=== PATIENT | female | born 1940 | race Caucasian/White ===

== ENCOUNTER 2022-06-05 02:39 | Inpatient (IN) | payer MEDICARE, BC, OTHER, SELFPAY ==
--- NOTE | ~2022-06-05 | XR_ITS ---
EXAMINATION: XR BILATERAL ELBOWS: 3 VIEWS EACH CLINICAL INFORMATION: Fall. Pain. COMPARISON: None FINDINGS: No acute fracture or dislocation. No joint effusion on either side. Soft tissue swelling posterior to both elbow joints, more pronounced on the right. XR/XR elbow LT 2V IMPRESSION: No acute fracture or dislocation
--- NOTE | ~2022-06-05 | CT_ITS ---
EXAMINATION: CT HEAD WITHOUT CONTRAST CLINICAL INFORMATION: Fall. Confusion. COMPARISON: None TECHNIQUE: Contiguous axial imaging was performed from the skull base to vertex without intravenous administration of contrast. This CT examination was performed using dose optimization techniques as appropriate, variously including the following: *Automated exposure control *Adjustment of mA and/or kV according to patient size (this includes techniques or standardized protocols for targeted exams where dose is matched to indication/reason for exam; i.e. extremities or head) *Use of iterative reconstruction technique DLP: 605 mGy-cm FINDINGS: There is no evidence of an extra-axial collection. There is no evidence of intra-axial or extra-axial hemorrhage. The ventricles and extra-axial CSF spaces are slightly prominent suggestive of mild generalized atrophy. There is nonspecific periventricular white matter disease. No mass, mass effect or infarct is seen. No skull fracture. Degenerative changes at the temporomandibular joints, left greater than right. Visualized paranasal sinuses, mastoid air cells and middle ears are clear. CT/CT head/brain wo IV con IMPRESSION: No acute intracranial findings.
--- NOTE | ~2022-06-05 | CT_ITS ---
EXAMINATION: RIGHT ELBOW CT WITH IV CONTRAST CLINICAL INFORMATION: Rule out abscess COMPARISON: Elbow x-ray from earlier the same day TECHNIQUE: Axial images through the elbow following 65 mL Omnipaque 350 intravenous contrast. Sagittal and coronal reconstructions on the technologist workstation were performed. Patient dose 6 0 5 mg/cm. This CT examination was performed using dose optimization techniques as appropriate, variously including the following: *Automated exposure control *Adjustment of mA and/or kV according to patient size (this includes techniques or standardized protocols for targeted exams where dose is matched to indication/reason for exam; i.e. extremities or head) *Use of iterative reconstruction technique FINDINGS: There is diffuse subcutaneous edema or fluid seen in the posterior elbow and posterior proximal forearm. No focal or walled off fluid collection is seen to suggest an abscess. No abnormal enhancement or fluid collection in the muscles to suggest myositis is seen. There is a small amount of fluid or subcutaneous edema seen in the antecubital fossa as well. No fracture or dislocation or evidence of osteomyelitis. Normal joint spaces. No elbow joint effusion. Small spur at the olecranon process. CT/CT elbow RT w IV con IMPRESSION: Diffuse subcutaneous edema or fluid seen posterior to the elbow and proximal posterior upper forearm. No definite focal walled off fluid collection to suggest abscess seen.
--- NOTE | ~2022-06-05 | XR_ITS ---
EXAMINATION: XR BILATERAL ELBOWS: 3 VIEWS EACH CLINICAL INFORMATION: Fall. Pain. COMPARISON: None FINDINGS: No acute fracture or dislocation. No joint effusion on either side. Soft tissue swelling posterior to both elbow joints, more pronounced on the right. XR/XR elbow RT 2V IMPRESSION: No acute fracture or dislocation
[2022-06-05 02:46] VITALS: BP 110/72; BP 135/72; PULSE 85; PULSE 91; RESP 14; TEMP 37.1; O2SAT 95; O2SAT 98; BMI 19.8
--- NOTE | 2022-06-05 03:46 | PC.NURSE ---
pt resting in bed, no needs at this time.
--- OUTSIDE RECORDS SUMMARY | 2022-06-05 04:40 | XMS_ITS | Continuity of Care Document ---
:1940 Author Organization [facility] Address [address]
--- OUTSIDE RECORDS SUMMARY | 2022-06-05 04:40 | XMS_ITS | Continuity of Care Document ---
:1940 Demographics Address [address] [place] [address] Mobile Email Address Preferred Language Uruguayan Marital Status
--- OUTSIDE RECORDS SUMMARY | 2022-06-05 04:41 | XMS_ITS | Continuity of Care Document ---
:1940 Author
--- NOTE | 2022-06-05 04:59 | ED_ITS ---
HPI - General Adult General Chief complaint: General Medical Stated complaint: weakness Time Seen by Provider: 06/05/22 04:43 Source: patient and family Mode of arrival: wheelchair Limitations: no limitations History of Present Illness HPI narrative: Patient comes to the emergency room accompanied by her . The reports that approximately 2 days ago, patient had a fall, landed on her elbows. Patient states that she does not remember exactly why she fell. Patient states that her was present, patient did not have any head strike, no loss of consciousness. The reports that over the last 2 days, he has noticed that the patient is gradually becoming weaker. Usually, patient is able to get up by herself, sometimes needs assistance getting up. However, today patient has significant weakness getting up off the toilet and had no strength to walk. Patient's called 911. Patient's is concerned that he cannot take care his at home because she is so weak. Patient denies any fever or chills. Complaining of pain in her right elbow Related Data Allergies Allergy/AdvReac Type Severity Reaction Status Date / Time Sulfa (Sulfonamide Allergy Unknown Unknown Unverified 06/05/22 04:56 Antibiotics) Review of Systems Review of Systems: Constitutional : No Weight loss, No Fever, No Chills, No Night Sweats, complaining of fatigue, generalized weakness ENT/Mouth : No Hearing loss, No Ear Pain, No Nasal Congestion, No Sinus Pain, No Hoarseness, No sore throat, No Rhinorrhea, No Swallowing Difficulty Eyes: No Eye Pain, No Swelling, No Redness, No Foreign Body, No Discharge, No Vision Changes Cardiovascular : No Chest Pain, No SOB, No Dyspnea on Exertion, No Orthopnea, No Edema, No Palpitations Respiratory : No Cough, No Sputum, No Wheezing, No Smoke Exposure, No Dyspnea Gastrointestinal : No Nausea, No Vomiting, No Diarrhea, No Constipation, No abdominal Pain, No Hematochezia, No Melena Genitourinary : no irregular bleeding, No Dysuria, No Urinary Frequency, No Hematuria, No Urinary Incontinence, No Urgency, No Flank Pain, No Urinary Flow Changes, No Hesitancy Musculoskeletal : Complaining of bilateral elbow pain more on the right side, No Myalgias, No Joint Swelling Skin : No Skin Lesions, No rash Neuro : No Weakness, No Numbness, No Paresthesias, No Loss of Consciousness, No Dizziness, No Headache Psych : No Anxiety/Panic, No Depression, No SI/HI/AH/VH, No Social Issues, Heme/Lymph: No Bruising, No Bleeding,No Lymphadenopathy Endocrine : No Polyuria, No Polydipsia, No Temperature Intolerance [facility] Past Medical History Medical History (Updated 06/05/22 @ 05:05 by Pita Owens MD) Anxiety Dementia Social History Social History Smoked in Last 30 Days: No Use of substances other than those prescribed or required for medical reasons: No Advance Directives: No Advance Directives Information Provided: Yes Physical Exam ED Vital Signs: Vital Signs - 24 hr 06/05/22 02:46 06/05/22 06:12 Temperature 98.7 F Pulse Rate 85 82 Respiratory Rate 14 16 Blood Pressure 135/72 116/58 L Pulse Oximetry 95 95 Oxygen Delivery Method Room Air Room Air BMI result Body Mass Index 19.8 Const Other: Appearance: Alert. Oriented X3. No acute distress. Eyes: Pupils equal, round and reactive to light. ENT: Pharynx normal. Neck: Normal inspection. Neck supple. No lymph nodes noted. No crepitus CVS: Normal heart rate and rhythm. Pulses normal. Normal S1 and S2 Respiratory: No respiratory distress. Breath sounds normal. No Wheezing. No rales Abdomen: Soft and nontender. No rigidity. No distention. Skin: Skin warm and dry. Patient has erythema around the right elbow, patient has an abrasion that is oozing pus in the right elbow. Extremities: No lower extremity edema. No Lacerations. No Rash Neuro: Oriented X 3. No motor deficit. No sensory deficit. Moving all extremities. No slurred speech. CN 2 through 12 grossly intact Psych: calm, cooperative, normal affect Course Course Course Narrative: Patient's labs and imaging pending. Patient likely has an abscess by the right elbow, definitely has cellulitis. After all the labs and imaging resolved, patient will likely need to be admitted. Patient was started on IV Zosyn and vancomycin. Sepsis not suspected at this time. X-ray negative for fracture. I discussed the patient with Dr. Taylor, we will go ahead and obtain a CT scan of the elbow. Patient will likely need an orthopedics consult. Medications Administered Discontinued Medications Generic Name Dose Route Start Last Admin Trade Name Freq PRN Reason Stop Dose Admin Sodium Chloride 1,000 mls @ 999 mls/hr 06/05/22 04:56 06/05/22 06:13 Ns IVCONT 06/05/22 05:56 999 mls/hr .Q1H1M ONE Administration Piperacillin Sod/Tazobactam 50 mls @ 100 mls/hr 06/05/22 04:56 06/05/22 06:14 Sod 3.375 gm/ Sodium Chloride IV 06/05/22 05:25 100 mls/hr ONCE ONE Administration Medical Decision Making Lab Data Result Diagrams: 06/05/22 05:22 06/05/22 05:23 Labs: Lab Results 06/05/22 06/05/22 06/05/22 Range/Units 05:22 05:22 05:22 WBC 16.1 H (4.8-10.8) X10*3/uL RBC 4.55 (4.20-5.50) X10*6/uL Hgb 13.6 (12.0-16.0) g/dl Hct 40.1 (37.0-47.0) % MCV 88.1 (80.0-98.0) fL MCH 29.9 (27.0-33.0) pg MCHC 33.9 (31.0-35.0) g/dl RDW 12.8 (11.0-16.0) % Plt Count 190 (160-400) X10*3/uL MPV 10.2 (9.4-12.3) fL Immature Gran % (Auto) 0.4 (0.0-0.4) % Neut % (Auto) 77.7 H (45-73) % Lymph % (Auto) 11.2 L (20-40) % [place] % (Auto) 10.4 (2-11) % Eos % (Auto) 0.1 (0-4) % Baso % (Auto) 0.2 (0-2) % Lymph # (Auto) 1.8 (1.2-4.9) X10*3/uL [place] # (Auto) 1.7 H (0.1-1.2) X10*3/uL Eos # (Auto) 0.0 (0.0-0.4) X10*3/uL Baso # (Auto) 0.0 (0.0-0.2) X10*3/uL Abs Immat Gran (auto) 0.06 H (0.00-0.03) X10*3/uL Absolute Neuts (auto) 12.6 H (2.0-8.3) x10*3/uL Absolute Nucleated RBC 0.000 (0.0-0.012) X10*3/uL Nucleated RBC % (auto) 0.0 (0.0-0.2) /100WBC Smear Tech's Comments VERIFIED ESR (0-20) MM/HR Sodium (135-145) mmol/L Potassium (3.3-5.1) mmol/L Chloride (96-108) mmol/L Carbon Dioxide (22-29) mmol/L Anion Gap (12-20) BUN (9-16) mg/dL Creatinine (0.5-1.4) mg/dL Estim Creat Clear Calc Estimated GFR Random Glucose (60-115) mg/dL Lactic Acid 1.0 (0.5-2.0) mmol/L Calcium (8.4-10.2) mg/dL Total Bilirubin (0.0-1.0) mg/dL Direct Bilirubin (0.0-0.5) mg/dL AST (5-31) U/L ALT (0-31) U/L Alkaline Phosphatase (39-117) U/L Total Creatine Kinase (26-140) U/L Troponin I High Sens (<3.5-17.0) ng/L C-Reactive Protein (< or = 0.50) mg/dL Total Protein (6.5-8.0) g/dL Albumin (3.5-5.0) g/dL COVID-19 ([facility]) Negative (Negative) COVID-19 Clin Com See Note 06/05/22 06/05/22 06/05/22 Range/Units 05:23 05:23 05:23 WBC (4.8-10.8) X10*3/uL RBC (4.20-5.50) X10*6/uL Hgb (12.0-16.0) g/dl Hct (37.0-47.0) % MCV (80.0-98.0) fL MCH (27.0-33.0) pg MCHC (31.0-35.0) g/dl RDW (11.0-16.0) % Plt Count (160-400) X10*3/uL MPV (9.4-12.3) fL Immature Gran % (Auto) (0.0-0.4) % Neut % (Auto) (45-73) % Lymph % (Auto) (20-40) % [place] % (Auto) (2-11) % Eos % (Auto) (0-4) % Baso % (Auto) (0-2) % Lymph # (Auto) (1.2-4.9) X10*3/uL [place] # (Auto) (0.1-1.2) X10*3/uL Eos # (Auto) (0.0-0.4) X10*3/uL Baso # (Auto) (0.0-0.2) X10*3/uL Abs Immat Gran (auto) (0.00-0.03) X10*3/uL Absolute Neuts (auto) (2.0-8.3) x10*3/uL Absolute Nucleated RBC (0.0-0.012) X10*3/uL Nucleated RBC % (auto) (0.0-0.2) /100WBC Smear Tech's Comments ESR 44 H (0-20) MM/HR Sodium 135 (135-145) mmol/L Potassium 4.0 (3.3-5.1) mmol/L Chloride 99 (96-108) mmol/L Carbon Dioxide 24 (22-29) mmol/L Anion Gap 16 (12-20) BUN 17 H (9-16) mg/dL Creatinine 0.90 (0.5-1.4) mg/dL Estim Creat Clear Calc 46.3 Estimated GFR > 60 Random Glucose 124 H (60-115) mg/dL Lactic Acid (0.5-2.0) mmol/L Calcium 9.2 (8.4-10.2) mg/dL Total Bilirubin 1.9 H (0.0-1.0) mg/dL Direct Bilirubin 0.5 (0.0-0.5) mg/dL AST 31 (5-31) U/L ALT 20 (0-31) U/L Alkaline Phosphatase 91 (39-117) U/L Total Creatine Kinase 174 H (26-140) U/L Troponin I High Sens 7.7 (<3.5-17.0) ng/L C-Reactive Protein 20.45 H (< or = 0.50) mg/dL Total Protein 7.1 (6.5-8.0) g/dL Albumin 4.0 (3.5-5.0) g/dL COVID-19 ([facility]) (Negative) COVID-19 Clin Com Discharge Plan Discharge Clinical Impression: Cellulitis, Weakness Patient Disposition: Admitted As Inpatient
[2022-06-05 05:29] LABS: Basophils Percent Auto 0.2 % (0-2); Eosinophils Percent Auto 0.1 % (0-4); Hematocrit 40.1 % (37.0-47.0); Hemoglobin 13.6 g/dl (12.0-16.0); Imm Gran Abs Auto 0.06 X10*3/uL (0.00-0.03); Imm Gran Pct Auto 0.4 % (0.0-0.4); Lymphocytes Absolute Auto 1.8 X10*3/uL (1.2-4.9); Lymphocytes Percent Auto 11.2 % (20-40); Mean Corpuscular HGB Conc 33.9 g/dl (31.0-35.0); Mean Corpuscular Hemoglobin 29.9 pg (27.0-33.0); Mean Corpuscular Volume 88.1 fL (80.0-98.0); Mean Platelet Volume 10.2 fL (9.4-12.3); Monocytes Absolute Auto 1.7 X10*3/uL (0.1-1.2); Monocytes Percent Auto 10.4 % (2-11); Neutrophils Absolute Auto 12.6 x10*3/uL (2.0-8.3); Neutrophils Percent Auto 77.7 % (45-73); Platelet Count 190 X10*3/uL (160-400); Red Blood Count 4.55 X10*6/uL (4.20-5.50); Red Cell Distribution Width 12.8 % (11.0-16.0); SCAN SMEAR FLAG 1; White Blood Count 16.1 X10*3/uL (4.8-10.8)
--- NOTE | 2022-06-05 05:30 | PC.NURSE ---
pt is alert but pleasantly confused unable to state the year thinks its summer time, reports that pt is having increased difficulty with ambulating and having with falls, increased confusion and keeps saying she feels out of breath. pt's right elbow red and tender from a previous fall. this rn ambulated the pt to the bathroom with two assists, pt did require constant reminder to put her foot in front of the other and was slightly shuffling, pt was unable to urinate at this time, this rn did a bladder scan the pt but 000ml in the bladder at this time. spoke with dr medeiros about the results of the bladder scan, verbal order to hang the abx without a urine sample
[2022-06-05 05:31] LABS: MANUAL DIFF FLAG SCAN
[2022-06-05 05:40] LABS: COVID-19 Test Negative (Negative); IDNOW Serial# BCCEAD1C
[2022-06-05 05:48] LABS: SLIDE REVIEW VERIFIED
[2022-06-05 05:49] LABS: Alanine Aminotransferase 20 U/L (0-31); Alkaline Phosphatase 91 U/L (39-117); Anion Gap 16 (12-20); Aspartate Amino Transferase 31 U/L (5-31); Bilirubin Direct 0.5 mg/dL (0.0-0.5); Bilirubin Total 1.9 mg/dL (0.0-1.0); Blood Urea Nitrogen 17 mg/dL (9-16); C Reactive Protein 20.45 mg/dL (< or = 0.50); Calcium 9.2 mg/dL (8.4-10.2); Carbon Dioxide 24 mmol/L (22-29); Chloride 99 mmol/L (96-108); Creatinine Clr Calc Pharmacy 46.3; Estimated Glomerular Filt Rate > 60; Glucose Random 124 mg/dL (60-115); Sodium 135 mmol/L (135-145); Total Protein 7.1 g/dL (6.5-8.0)
[2022-06-05 05:53] LABS: Troponin-I High Sensitivity 7.7 ng/L (<3.5-17.0)
[2022-06-05 06:01] LABS: Erythrocyte Sedimentation Rate 44 MM/HR (0-20)
[2022-06-05 06:12] VITALS: BP 116/58; PULSE 82; RESP 16; O2SAT 95
--- NOTE | 2022-06-05 07:21 | PC.NURSE ---
pt to ct at this time. pt appears at baseline. at bedside. aware pf plan of care for admission. denied having any questions.
[2022-06-05] MEDS: iohexoL 350 MG/ML 100 ML INFUS..BTL 85 ML IV (07:42)
--- NOTE | 2022-06-05 08:52 | PM.IMHP ---
History of Present Illness Date of Service: 06/05/22 Chief Complaint: weakness The patient is an 81 yo F with a PMH of anxiety and dementia (per ED documentation) who presented to the ED for generalized weakness. The patient is currently forgetful (suspected chronic due to underlying dementia) and hence the history is obtained from the ED charts. A call was made to the the patient's , whom the patient resides with, but went unanswered. Per the ED provider documentation: Patient comes to the emergency room accompanied by her .? The reports that approximately 2 days ago, patient had a fall, landed on her elbows.? Patient states that she does not remember exactly why she fell.? Patient states that her was present, patient did not have any head strike, no loss of consciousness.? The reports that over the last 2 days, he has noticed that the patient is gradually becoming weaker.? Usually, patient is able to get up by herself, sometimes needs assistance getting up.? However, today patient has significant weakness getting up off the toilet and had no strength to walk.? Patient's called 911.? Patient's is concerned that he cannot take care his at home because she is so weak.? Patient denies any fever or chills.? Complaining of pain in her right elbow The patient is seen and examined in the Ed around 8:40 AM. She does not know where she is, nor the date/time. She states she came to the ED because of weakness. When asked about falls, she does not recall falling. She denies headache, blurred vision, chest pain, sob, abdominal pain. She states no not elbow pain, but does show signs of pain with ROM. Work up in the ED reveals a wbc count of 16; ESR is 44 and CRP 20. Elow XR is negative for acute fractures. A CT scan of the elbow is completed and pending read. She has been given IV zosyn and vancomcyin for presumed cellulitis and abscess near the R elbow. She will not be admitted for further work up and treatment. PMH/PSH/SH/FH --- unable to complete due to the patient's mental status Review of Systems Review of Systems: unable to review due to patient's mental status [facility] Medical History Anxiety Dementia Social History Smoked in Last 30 Days: No Use of substances other than those prescribed or required for medical reasons: No Advance Directives: No Advance Directives Information Provided: Yes Meds Allergies Allergy/AdvReac Type Severity Reaction Status Date / Time Sulfa (Sulfonamide Allergy Unknown Unknown Unverified 06/05/22 04:56 Antibiotics) Active Medications: Current Medications Acetaminophen (Acetaminophen 325 Mg Tablet) 650 mg PO Q6H PRN PRN Reason: Pain, Mild (Pain Scale 1-3) Enoxaparin Sodium (Enoxaparin Sodium 40 Mg/0.4 Ml Syringe) 40 mg SUBCUT Q24H DORON Ondansetron HCl (Ondansetron Hcl 4 Mg/2 Ml Vial) 4 mg IVPUSH Q8H PRN PRN Reason: Nausea and Vomiting Pharmacy Consult (Consult Rx Perform Med Rec) 1 each MISCELLANE ONCE PRN PRN Reason: Consult order Sodium Chloride (0.9 % Sodium Chloride Flush 3 Ml Syringe) 3 ml IVFLUSH QSHIFT [facility] Home Medications Medication Instructions Recorded Confirmed Last Taken Type alprazolam 0.25 mg tablet 1 tab PO BID PRN anxiety 06/05/22 06/05/22 Unknown History cholecalciferol (vitamin D3) 25 25 mcg PO DAILY 06/05/22 06/05/22 06/04/22 History mcg (1,000 unit) tablet (Vitamin D3) denosumab 60 mg/mL subcutaneous 60 mg subcut DAILY 06/05/22 06/05/22 3 Months Ago History syringe (Prolia) ~03/06/22 donepezil 10 mg tablet 1 tab PO BEDTIME 06/05/22 06/05/22 06/04/22 History gabapentin 100 mg capsule 2 cap PO BID 06/05/22 06/05/22 06/04/22 History paroxetine HCl 20 mg tablet 1 tab PO DAILY 06/05/22 06/05/22 06/04/22 History propranolol 60 mg capsule,24 1 cap PO DAILY 06/05/22 06/05/22 06/04/22 History hr,extended release vitamin A 10,000 unit capsule 10,000 unit PO DAILY 06/05/22 06/05/22 06/04/22 History Physical Exam Vital Signs and Narrative: Vital Signs: Last Vital Signs Temp 98.7 F 06/05/22 02:46 Pulse 82 06/05/22 06:12 Resp 16 06/05/22 06:12 BP 116/58 L 06/05/22 06:12 Pulse Ox 95 06/05/22 06:12 O2 Del Method 06/05/22 06:12 BMI result Body Mass Index 19.8 Const: Other: Constitutional - Awake and Alert, No apparent distress Eyes - PERRLA, EOMI Cardiovascular - S1S2, RRR, No edema Respiratory - Normal lung expansion, Normal respiratory effort, No respiratory distress, CTA bilaterally Gastrointestinal - NT / ND; +BS; No rebound or guarding - No CVA tenderness Extremities - no calf tenderness bilaterally, no swelling Musculoskeletal - ROM in the R elbow limited secondary to swelling / pain Skin - Erythema / warmth near the R elbow join; small opening with serosanginous drainage; see pictures below Neurological - Oriented to self, otherwise disoriented; no focal deficits Psychological - Appropriate affect Skin: Other: Results Labs CBC and Chem 7: 06/05/22 05:22 06/05/22 05:23 Labs: Laboratory Results - last 24 hr 06/05/22 06/05/22 06/05/22 05:22 05:22 05:22 MCV 88.1 MCH 29.9 MCHC 33.9 RDW 12.8 Plt Count 190 MPV 10.2 Immature Gran % (Auto) 0.4 Neut % (Auto) 77.7 H Lymph % (Auto) 11.2 L [place] % (Auto) 10.4 Eos % (Auto) 0.1 Baso % (Auto) 0.2 Lymph # (Auto) 1.8 [place] # (Auto) 1.7 H Eos # (Auto) 0.0 Baso # (Auto) 0.0 Abs Immat Gran (auto) 0.06 H Absolute Neuts (auto) 12.6 H Absolute Nucleated RBC 0.000 Nucleated RBC % (auto) 0.0 Smear Tech's Comments VERIFIED ESR Anion Gap Estim Creat Clear Calc Estimated GFR Random Glucose Lactic Acid 1.0 Calcium Total Bilirubin Direct Bilirubin AST ALT Alkaline Phosphatase Total Creatine Kinase Troponin I High Sens C-Reactive Protein Total Protein Albumin COVID-19 ([facility]) Negative COVID-19 Clin Com See Note 12/27/22 12/27/22 12/27/22 05:23 05:23 05:23 MCV MCH MCHC RDW Plt Count MPV Immature Gran % (Auto) Neut % (Auto) Lymph % (Auto) [place] % (Auto) Eos % (Auto) Baso % (Auto) Lymph # (Auto) [place] # (Auto) Eos # (Auto) Baso # (Auto) Abs Immat Gran (auto) Absolute Neuts (auto) Absolute Nucleated RBC Nucleated RBC % (auto) Smear Tech's Comments ESR 44 H Anion Gap 16 Estim Creat Clear Calc 46.3 Estimated GFR > 60 Random Glucose 124 H Lactic Acid Calcium 9.2 Total Bilirubin 1.9 H Direct Bilirubin 0.5 AST 31 ALT 20 Alkaline Phosphatase 91 Total Creatine Kinase 174 H Troponin I High Sens 7.7 C-Reactive Protein 20.45 H Total Protein 7.1 Albumin 4.0 COVID-19 ([facility]) COVID-19 Clin Com Imaging Radiologist's Impressions: Impressions Elbow X-Ray 06/05/22 05:31 IMPRESSION: No acute fracture or dislocation Elbow X-Ray 06/05/22 05:31 IMPRESSION: No acute fracture or dislocation Assessment and Plan (1) Cellulitis: Status: Acute Plan 81 yo F with suspected dementia and anxiety presenting to the ED with weakness after sustaining a fall about 2 days prior to admission. It appears that she has developed R elbow cellulitis and possibly infected bursitis vs abscess. 1. R elbow cellulitis with possible abscess vs septic bursitis. CT result pending given vancomcyin / zosyn in the ED -- will continue vancomcyin follow cultures orthpedics consult 2. Confusion suspected likely baseline from dementia, but will have to obtain collateral information from family. Attempted to call but no response; will re-attempt 3. Generalized weakness possibly from acute infection 4. Hyperbilirubinemia no abdominal symptoms, could be related to acute infection will trend Presumed Full Code for now (pt could not understand / reliably answer). DVT pptx - Lovenox Due to the patient's cellulitis with potential for join involvement and the need for expert opinion (orthopedics) + what appears to be advanced dementia, I anticipate she will need an inpatient hospitalization likey to span at least 2 midnights for treatment of her acute infection. Time Spent With Patient Time: Total time managing care of this patient today ____ minutes. Quality Stroke Does the patient have a stroke diagnosis?: No VTE Prior VTE?: No VTE Risk Level:: Medical - moderate - high VTE Device Contraindication: Treatment Not Indicated VTE Drug Contraindication: N/A - Med Ordered
[2022-06-05 09:04] VITALS: BP 176/52; PULSE 76; RESP 16; O2SAT 98
--- NOTE | 2022-06-05 09:10 | PHA.MEDREC ---
Pharmacy Consult ? Medication Reconciliation Pharmacy has completed the medication reconciliation Patient's was at bedside with RX bottles and confirmed meds..
--- NOTE | 2022-06-05 09:20 | PC.NURSE ---
Pt was assisted by me to stand ambulate. Pt was ambulated for 20 feet. She needed 1 limited assistance. Pt tolerated activity well.
--- NOTE | 2022-06-05 09:37 | PHA.PROG ---
Admission Date/Time: June 05, 2022 08:49 Indication Bone & Joint Weight in k.967 kg Adjusted body weight in K.9 kg [place] body weight in K.9 kg Obesity Dosing Indication % IBW: 58.9 kg Serum Creatinine - Last 168 Hours 06/05/22 05:23 Creatinine 0.90 Estimated CrCl and GFR - Last 168 Hours 06/05/22 05:23 Estim Creat Clear Calc 46.3 Estimated GFR > 60 Vancomycin Loading Dose: 1500 mg (25.5 mg/kg) Current Vancomycin Dosing Regimen: 1000 mg Q24H Date and Time for next Vancomycin Level to be drawn: 05/29 @ 0600 Pharmacist Comments on Vancomycin Plan: Patient received loading dose vanco 1500 mg in the ER 06/05 @ 0753. Maintenance dose vanco 1000 mg Q24H is scheduled to start 06/06 @ 0800. Expected AUC 506 with a trough of 15.4. Level to be drawn prior to 4th dose Pharmacy to monitor renal function daily Meg Hurt PharmD Vancomycin dosing will take advantage of [employer] as a clinical decision support tool that uses Bayesian modeling to calculate individual patient's pharmacokinetic parameters and forecast the patient's drug concentration time course with the target goal AUC 24 range of 400 - 600 mg/L/hr.
[2022-06-05] MEDS: Enoxaparin Sodium 40 MG/0.4 ML SYRINGE SUBCUT (09:40)
--- NOTE | 2022-06-05 09:57 | P.CONOP_ITS ---
History of Present Illness HPI Consult date: 06/05/22 Chief complaint: weakness Narrative: Ms. Witt is an 81 yo female with a PMH significant for suspected Dementia who presented to the emergency room for generalized weakness. HPI is mostly gathered from ED note and Medicine note.? The patients was present at the time of presentation but not during my evaluation. According to prior documentation the reported that approximately 2 days ago, the patient had a fall landing on her elbows.?She complains of right elbow pain with surrounding redness and a small pea sized abrasion. Review of Systems Review of Systems: Yes all other systems are reviewed and are negative PMFSH Past Medical History Medical History Anxiety Dementia Social History Social History Smoked in Last 30 Days: No Use of substances other than those prescribed or required for medical reasons: No Advance Directives: No Advance Directives Information Provided: Yes Meds Allergies Allergy/AdvReac Type Severity Reaction Status Date / Time Sulfa (Sulfonamide Allergy Unknown Unknown Unverified 06/05/22 04:56 Antibiotics) Active Medications: Current Medications Acetaminophen (Acetaminophen 325 Mg Tablet) 650 mg PO Q6H PRN PRN Reason: Pain, Mild (Pain Scale 1-3) Enoxaparin Sodium (Enoxaparin Sodium 40 Mg/0.4 Ml Syringe) 40 mg SUBCUT Q24H [facility] Last Admin: 06/05/22 09:40 Dose: 40 mg Vancomycin HCl 1,000 mg/ (Sodium Chloride) 270 mls @ 270 mls/hr IV Q24H DORON Ondansetron HCl (Ondansetron Hcl 4 Mg/2 Ml Vial) 4 mg IVPUSH Q8H PRN PRN Reason: Nausea and Vomiting Pharmacy Consult (Consult Rx Perform Med Rec) 1 each MISCELLANE ONCE PRN PRN Reason: Consult order Pharmacy Consult (Consult Rx Vancomycin Dosing) 1 each MISCELLANE DAILY PRN PRN Reason: Consult order Sodium Chloride (0.9 % Sodium Chloride Flush 3 Ml Syringe) 3 ml IVFLUSH QSHIFT [facility] Last Admin: 06/05/22 09:18 Dose: Not Given Home Medications Medication Instructions Recorded Confirmed Last Taken Type alprazolam 0.25 mg tablet 1 tab PO BID PRN anxiety 06/05/22 06/05/22 Unknown History cholecalciferol (vitamin D3) 25 25 mcg PO DAILY 06/05/22 06/05/22 06/04/22 History mcg (1,000 unit) tablet (Vitamin D3) denosumab 60 mg/mL subcutaneous 60 mg subcut DAILY 06/05/22 06/05/22 3 Months Ago History syringe (Prolia) ~03/06/22 donepezil 10 mg tablet 1 tab PO BEDTIME 06/05/22 06/05/22 06/04/22 History gabapentin 100 mg capsule 2 cap PO BID 06/05/22 06/05/22 06/04/22 History paroxetine HCl 20 mg tablet 1 tab PO DAILY 06/05/22 06/05/22 06/04/22 History propranolol 60 mg capsule,24 1 cap PO DAILY 06/05/22 06/05/22 06/04/22 History hr,extended release vitamin A 10,000 unit capsule 10,000 unit PO DAILY 06/05/22 06/05/22 06/04/22 History Physical Exam Vital Signs: Vital Signs: Last Vital Signs Temp 98.7 F 06/05/22 02:46 Pulse 76 06/05/22 09:04 Resp 16 06/05/22 09:04 BP 176/52 H 06/05/22 09:04 Pulse Ox 98 06/05/22 09:04 O2 Del Method 06/05/22 09:04 BMI result Body Mass Index 19.8 Const: General: cooperative and no acute distress Resp: Effort & Inspection: normal respiratory effort and able to speak in complete sentences Cardio: Peripheral pulses: Peripheral pulses 2+ throughout Skin: General skin exam: no rashes or lesions noted Extrem: Other: Right elbow erythema along the olecranon and posterior aspect of the elbow. Two small pea sized open areas over the olecranon bursa. No active drainage. Able to flex, extend, pronate and supinate with pain. Tenderness to palpation over the olecranon. Reportedly sensation is intact. Radial pulse intact. Results Labs Result Diagrams: 06/05/22 05:22 06/05/22 05:23 Labs: Abnormal lab results 06/05/22 06/05/22 06/05/22 Range/Units 05:22 05:23 05:23 WBC 16.1 H (4.8-10.8) X10*3/uL Neut % (Auto) 77.7 H (45-73) % Lymph % (Auto) 11.2 L (20-40) % [place] # (Auto) 1.7 H (0.1-1.2) X10*3/uL Abs Immat Gran (auto) 0.06 H (0.00-0.03) X10*3/uL Absolute Neuts (auto) 12.6 H (2.0-8.3) x10*3/uL ESR 44 H (0-20) MM/HR BUN 17 H (9-16) mg/dL Random Glucose 124 H (60-115) mg/dL Total Bilirubin 1.9 H (0.0-1.0) mg/dL Total Creatine Kinase 174 H (26-140) U/L C-Reactive Protein 20.45 H (< or = 0.50) mg/dL H & H 06/05/22 Range/Units 05:22 Hgb 13.6 (12.0-16.0) g/dl Hct 40.1 (37.0-47.0) % All other labs normal. Assessment and Plan (1) Cellulitis: Status: Acute Abx per medicine recommendation X-rays of the right elbow negative for any acute fracture or dislocation. Posterior soft tissue swelling. Pending CT Results Wound care as appropriate Gentle ROM Continue to monitor for resolition of symptoms (2) Weakness: Status: Acute Time Spent With Patient Time: Total time managing care of this patient today ____ minutes. Procedures Date of Service Date of Service: 06/05/22
[2022-06-05 10:00] LABS: Appearance Urine Clear; Color Urine Yellow; Glucose Urine UA Negative (Negative); Leukocyte Esterase Urine Negative (Negative); Nitrite Urine Negative (Negative); Specific Gravity - Urine >= 1.030 (1.005-1.025); UMIC TRIGGER UACC YES; Urine Blood Small (1+) (Negative); Urine Ketones 15 mg/dL (Negative); Urine Protein 30 (1+) mg/dL (Neg-Trace)
[2022-06-05 10:11] LABS: Bacteria Urine None Seen (None Seen); Hyaline Casts Urine 0-2 /LPF (0-2); RBC Urine 0-2 /HPF (0-2); Squamous Epithelial Cell Urine 0-2 /HPF (0-2); WBC Urine 0-5 /HPF (0-5)
[2022-06-05] MEDS: iohexoL 350 MG/ML 75 ML INFUS..BTL 65 ML IV (12:05)
[2022-06-05 12:56] VITALS: BP 159/75; PULSE 60; RESP 20; TEMP 36.4; O2SAT 98
[2022-06-05 17:56] VITALS: BP 135/64; PULSE 106; RESP 18; TEMP 36.9; O2SAT 96
[2022-06-05 19:32] VITALS: BP 162/71; PULSE 89; RESP 20; TEMP 37.1; O2SAT 97
[2022-06-05 20:00] VITALS: BMI 18.1
[2022-06-05] MEDS: ALPRAZolam 0.25 MG TABLET PO (20:27)
[2022-06-05] MEDS: Acetaminophen 325 MG TABLET 650 MG PO (20:27)
[2022-06-05] MEDS: Gabapentin 100 MG CAPSULE 200 MG PO (20:27)
[2022-06-05] MEDS: Donepezil HCl 10 MG TABLET PO (20:27)
[2022-06-05] MEDS: 0.9 % Sodium Chloride Flush 3 ML SYRINGE IVFLUSH (20:35)
[2022-06-05] MEDS: OLANZapine 10 MG VIAL 5 MG IM (22:05)
--- NOTE | 2022-06-05 22:08 | MHC.PIE ---
p; pt setting off alarms in bed and on camera numerus times in the last 2 hours since arrival from [place]. pt confused, anxious, agitated and restless trying to jump out of bed and trying to pull out iv and dsg to rt elbow. prn xanax given with no result. i; dr gifford notified; new order zyprexa im now e; will cont to [facility]
[2022-06-06] VITALS (11 sets, daily range): BP systolic 97–187; BP diastolic 56–96; PULSE 84–199; RESP 18–20; TEMP 36.2–37.1; O2SAT 92–96; BMI 19.7
--- NOTE | 2022-06-06 | ECG_ITS ---
Test Reason : arrhythmia Blood Pressure : / mmHG Vent. Rate : 120 BPM Atrial Rate : 000 BPM P-R Int : 000 ms QRS Dur : 078 ms QT Int : 312 ms P-R-T Axes : 000 -03 -05 degrees QTc Int : 440 ms Atrial fibrillation with rapid ventricular response with premature ventricular or aberrantly conducted complexes Nonspecific T wave abnormality Abnormal ECG No previous ECGs available Referred By: Gloria Scott Electronically Signed By:HARMONY DAY MD
[2022-06-06 06:38] LABS: Hematocrit 41.2 % (37.0-47.0); Hemoglobin 13.5 g/dl (12.0-16.0); Mean Corpuscular HGB Conc 32.8 g/dl (31.0-35.0); Mean Corpuscular Hemoglobin 29.7 pg (27.0-33.0); Mean Corpuscular Volume 90.5 fL (80.0-98.0); Mean Platelet Volume 10.8 fL (9.4-12.3); Platelet Count 183 X10*3/uL (160-400); Red Blood Count 4.55 X10*6/uL (4.20-5.50); Red Cell Distribution Width 13.1 % (11.0-16.0)
--- NOTE | 2022-06-06 07:22 | PM.PNORT ---
Subjective Subjective Date of Service: 06/06/22 Interval history: Patient resting comfortably in bed. Pleasantly confused at baseline. Sitter at bedside. No overnight events. Pain is reportedly improving. No additional complaints. Physical Exam Vital Signs: Vital Signs: Last Vital Signs Temp 97.5 F 06/06/22 03:09 Pulse 91 06/06/22 03:09 Resp 20 06/06/22 03:09 BP 129/96 H 06/06/22 03:09 Pulse Ox 94 06/06/22 03:09 O2 Del Method 06/06/22 03:09 BMI result Body Mass Index 18.1 Const: General: cooperative, healthy appearing and no acute distress Resp: Effort & Inspection: normal respiratory effort and able to speak in complete sentences Cardio: Rate: regular rate Peripheral pulses: Peripheral pulses 2+ throughout GI: Palpation (GI): Soft to palpation Skin: Lesions: no lesions Rashes: no rashes Extrem: Other: Right elbow improving erythema. Less tenderness to palpation over the olecranon. Dressing is c/d/i. ROM is improving. NVI. Procedures Date of Service Date of Service: 06/06/22 Progress Note: A&P Assessment and plan (1) Cellulitis: Status: Acute Assessment and Plan: Gentle ROM Wound care as appropriate No additional orthopedic intervention needed at this time CT Scan right elbow negative for abscess, fracture, or dislocation X-rays right elbow negative for any acute fracture or dislocation (2) Weakness: Status: Acute Time Spent With Patient Time: Total time managing care of this patient today ____ minutes. Quality Stroke Does the patient have a stroke diagnosis?: No VTE Prior VTE?: No VTE Risk Level:: Medical - moderate - high VTE Device Contraindication: Treatment Not Indicated VTE Drug Contraindication: N/A - Med Ordered
[2022-06-06 07:25] LABS: Anion Gap 17 (12-20); Blood Urea Nitrogen 13 mg/dL (9-16); Carbon Dioxide 20 mmol/L (22-29); Chloride 105 mmol/L (96-108); Creatinine Clr Calc Pharmacy 46.8; Estimated Glomerular Filt Rate > 60; Glucose Random 83 mg/dL (60-115); Potassium 3.6 mmol/L (3.3-5.1); Sodium 138 mmol/L (135-145)
[2022-06-06] MEDS: Gabapentin 100 MG CAPSULE 200 MG PO ×2 (08:52→20:40)
[2022-06-06] MEDS: Cholecalciferol (Vitamin D3) 25 MCG TABLET PO (08:52)
[2022-06-06] MEDS: vancomycin HCL 1,000 MG in 0.9 % Sodium Chloride 250 ML 270 MG IV (08:52)
[2022-06-06] MEDS: 0.9 % Sodium Chloride Flush 3 ML SYRINGE IVFLUSH ×3 (08:52→20:40)
[2022-06-06] MEDS: Enoxaparin Sodium 40 MG/0.4 ML SYRINGE SUBCUT (08:52)
[2022-06-06] MEDS: PARoxetine HCL 20 MG TABLET PO (08:52)
[2022-06-06] MEDS: Acetaminophen 325 MG TABLET 650 MG PO (10:13)
--- NOTE | 2022-06-06 14:22 | HO.PM.IMPN ---
Subjective Subjective Date of Service: 06/06/22 Interval History: Seen in follow up for cellulitis Interval history: Pt laying in bed somewhat confused but able to answer questions. She reports some nausea, no vomiting. No abd pain. Right elbow with copious purulent drainage. Denies pain. Review of Systems General: No fevers, malaise, unintentional weight loss Cardiovascular: No chest pain, palpitations, or leg edema Respiratory: No shortness of breath, wheezing, cough GI: +nausea. No abdominal pain, vomiting, diarrhea MSK: No myalgia, back pain Neuro: No headaches, weakness, paresthesias Skin: No rashes or lesions, +redness, warmth, drainage right elbow Physical Exam Vital Signs: Vital Signs: Last Vital Signs Temp 97.4 F 06/06/22 14:09 Pulse 104 H 06/06/22 14:09 Resp 18 06/06/22 14:09 BP 123/61 06/06/22 14:09 Pulse Ox 96 06/06/22 14:09 O2 Del Method 06/06/22 14:09 BMI result Body Mass Index 19.7 Constitutional - Awake and Alert, No apparent distress Eyes - PERRLA, EOMI Cardiovascular - S1S2, RRR, No edema Respiratory - Normal lung expansion, Normal respiratory effort, No respiratory distress, CTA bilaterally Gastrointestinal - NT / ND; +BS; No rebound or guarding Extremities - no calf tenderness bilaterally, no swelling Skin - Warm/Dry. Erythema and warmth of right elbow with copious thick purulent drainage over the lateral epicondyle/olecranon. see photo Neurological - Alert & oriented x3 Psychological - Appropriate affect Objective Data Active Medications Acetaminophen (Acetaminophen 325 Mg Tablet) 650 mg PO Q6H PRN PRN Reason: Pain, Mild (Pain Scale 1-3) Last Admin: 06/06/22 10:13 Dose: 650 mg Documented By: SEBASTIAN Alprazolam (Alprazolam 0.25 Mg Tablet) 0.25 mg PO BID PRN PRN Reason: anxiety Last Admin: 06/05/22 20:27 Dose: 0.25 mg Documented By: CLOVER Donepezil HCl (Donepezil Hcl 10 Mg Tablet) 10 mg PO BEDTIME DORON Last Admin: 06/05/22 20:27 Dose: 10 mg Documented By: CLOVER Enoxaparin Sodium (Enoxaparin Sodium 40 Mg/0.4 Ml Syringe) 40 mg SUBCUT Q24H [facility] Last Admin: 06/06/22 08:52 Dose: 40 mg Documented By: SEBASTIAN Gabapentin (Gabapentin 100 Mg Capsule) 200 mg PO BID [facility] Last Admin: 06/06/22 08:52 Dose: 200 mg Documented By: SEBASTIAN Vancomycin HCl 1,000 mg/ (Sodium Chloride) 270 mls @ 270 mls/hr IV Q24H [facility] Last Infusion: 06/06/22 10:08 Dose: 0 mls/hr Documented By: SEBASTIAN Ondansetron HCl (Ondansetron Hcl 4 Mg/2 Ml Vial) 4 mg IVPUSH Q8H PRN PRN Reason: Nausea and Vomiting Paroxetine HCl (Paroxetine Hcl 20 Mg Tablet) 20 mg PO DAILY [facility] Last Admin: 06/06/22 08:52 Dose: 20 mg Documented By: SEBASTIAN Pharmacy Consult (Consult Rx Perform Med Rec) 1 each MISCELLANE ONCE PRN PRN Reason: Consult order Pharmacy Consult (Consult Rx Vancomycin Dosing) 1 each MISCELLANE DAILY PRN PRN Reason: Consult order Propranolol HCl (Propranolol Hcl La 60 Mg Cap.Sa.24h) 60 mg PO DAILY [facility]; Protocol Last Admin: 06/06/22 08:52 Dose: Not Given Documented By: SEBASTIAN Non-Admin Reason: Med Not Available Sodium Chloride (0.9 % Sodium Chloride Flush 3 Ml Syringe) 3 ml IVFLUSH QSHIFT [facility] Last Admin: 06/06/22 08:52 Dose: 3 ml Documented By: SEBASTIAN Vitamin D (Cholecalciferol (Vitamin D3) 25 Mcg Tablet) 25 mcg PO DAILY [facility] Last Admin: 06/06/22 08:52 Dose: 25 mcg Documented By: SEBASTIAN Labs CBC & Chem 7: 06/06/22 05:41 06/06/22 05:41 Labs: Laboratory Results - last 24 hr 06/06/22 06/06/22 06/06/22 05:41 05:41 05:41 MCV 90.5 MCH 29.7 MCHC 32.8 RDW 13.1 Plt Count 183 MPV 10.8 Absolute Nucleated RBC 0.000 Nucleated RBC % (auto) 0.0 Anion Gap 17 Estim Creat Clear Calc 46.8 Cancelled Estimated GFR > 60 Cancelled Random Glucose 83 Calcium 9.0 Microbiology Microbiology Results: Microbiology 06/05/22 06:11 Blood Culture - Preliminary Blood - Venous No growth after 24 hours. 06/05/22 05:22 Blood Culture - Preliminary Blood - Venous No growth after 24 hours. Assessment and Plan (1) Cellulitis: Status: Acute (2) Weakness: Status: Acute Plan 81 yo F with suspected dementia and anxiety presenting to the ED with weakness after sustaining a fall about 2 days prior to admission. It appears that she has developed R elbow cellulitis and possibly infected bursitis vs abscess. # R elbow purulent cellultiis -CT negative for abscess -Wound culture obtained -Continue Zosyn -Seen by ortho- no ortho intervention needed -WBC trending down -Follow CBC, cultures, trend CRP # Generalized weakness -possibly from acute infection -PT eval #Unspecified Dementia- mental status seem baseline -without behavioral disturbance #Hyperbilirubinemia no abdominal symptoms, could be related to acute infection will trend #New onset AFib with RVR -EKG showing Afib with RVR, rate 120 -Cont cardiac monitoring ordered rate variable 110-155 -Cardizem 10mg IV push once -Monitor VS -Start eliquis 5mg BID. No history recent GI bleed, hemorrhagic stroke -Card consulted -Echo ordered Presumed Full Code DVT pptx - Lovenox Pt requires ongoing inpt stay for management of purulent cellulitis with elevated CRP and significant weakness requiring PT evaluation and possible STR, now in AFib with RVR requiring cont cardiac monitoring to prevent further cardiac decompensation Quality Stroke Does the patient have a stroke diagnosis?: No VTE Prior VTE?: No VTE Risk Level:: Medical - moderate - high VTE Device Contraindication: Treatment Not Indicated VTE Drug Contraindication: N/A - Med Ordered
--- NOTE | 2022-06-06 15:28 | MHC.CM.PN ---
attempted to reach family wrong number on face sheet no old records ,requested to rn to tell cm when there is a visitor
[2022-06-06] MEDS: dilTIAZem HCL 50 MG/10 ML VIAL 10 MG IVPUSH (17:06)
[2022-06-06] MEDS: Donepezil HCl 10 MG TABLET PO (20:40)
[2022-06-06] MEDS: ALPRAZolam 0.25 MG TABLET PO (21:04)
[2022-06-06] MEDS: Metoprolol Tartrate 5 MG/5 ML VIAL IVPUSH (23:11)
[2022-06-06] MEDS: Haloperidol Lactate 5 MG/ML VIAL 2.5 MG IVPUSH (23:11)
--- NOTE | 2022-06-06 23:44 | PC.NURSE ---
2250 Pt's HR 170-200 pt agitated oob refusing to get back to bed. notified.ordered metoprolol 5mg iv and haldol 2.5mg iv given at 2310.2330 HR 80's-100.bp-111/61 resting quietly sitter at bedside.Pt denied chest pain or sob.
[2022-06-07] VITALS (7 sets, daily range): BP systolic 107–171; BP diastolic 59–93; PULSE 52–109; RESP 16–20; TEMP 35.9–37.1; O2SAT 93–100
--- NOTE | 2022-06-07 | ECG_ITS ---
Test Reason : RHYTHEM CHANGE Blood Pressure : / mmHG Vent. Rate : 055 BPM Atrial Rate : 055 BPM P-R Int : 140 ms QRS Dur : 080 ms QT Int : 458 ms P-R-T Axes : 043 004 014 degrees QTc Int : 438 ms Sinus bradycardia Nonspecific ST abnormality Abnormal ECG When compared with ECG of 06-JUN-2022 16:23, Sinus rhythm has replaced Atrial fibrillation Vent. rate has decreased BY 65 BPM Non-specific change in ST segment in Lateral leads Nonspecific T wave abnormality, improved in Inferior leads T wave inversion no longer evident in Lateral leads Referred By: Gloria Scott Electronically Signed By:HARMONY DAY MD
[2022-06-07 00:46] LABS: CDiff Gene PCR NEGATIVE (Negative)
[2022-06-07 06:21] LABS: MANUAL DIFF FLAG NO
[2022-06-07 06:42] LABS: Basophils Percent Auto 0.4 % (0-2); Eosinophils Absolute Auto 0.2 X10*3/uL (0.0-0.4); Eosinophils Percent Auto 2.8 % (0-4); Hematocrit 33.6 % (37.0-47.0); Hemoglobin 11.2 g/dl (12.0-16.0); Imm Gran Abs Auto 0.02 X10*3/uL (0.00-0.03); Imm Gran Pct Auto 0.3 % (0.0-0.4); Lymphocytes Absolute Auto 1.4 X10*3/uL (1.2-4.9); Lymphocytes Percent Auto 18.6 % (20-40); Mean Corpuscular HGB Conc 33.3 g/dl (31.0-35.0); Mean Corpuscular Hemoglobin 29.7 pg (27.0-33.0); Mean Corpuscular Volume 89.1 fL (80.0-98.0); Mean Platelet Volume 10.9 fL (9.4-12.3); Monocytes Absolute Auto 0.9 X10*3/uL (0.1-1.2); Monocytes Percent Auto 11.5 % (2-11); Neutrophils Percent Auto 66.4 % (45-73); Platelet Count 220 X10*3/uL (160-400); Red Blood Count 3.77 X10*6/uL (4.20-5.50); Red Cell Distribution Width 13.2 % (11.0-16.0); White Blood Count 7.5 X10*3/uL (4.8-10.8)
--- NOTE | 2022-06-07 07:00 | CA_ITS ---
Transthoracic Echocardiogram Patient (Last, First, Middle): Sania Witt, Gender: Female Date of : 1940 Age: 81 Procedure Date: 06/07/2022 Procedure Type: Transthoracic Echocardiogram Location: [facility] [place] Height: 172.72 cm Weight: 58.51 kg BSA: 1.70 m2 Heart Rate: bpm BP: 107 / 59 mmHg Ruling Technician: DELGADO/GARCIA Referring MD: Gloria HERRERA Head Filter Press Tender: Mik Dunlap MD Symptoms: new onset afib Study Quality: Technically Difficult, contrast ECG Rhythm: Sinus Conclusions: - 1. Normal LV systolic function with restrictive filling pattern with suggestion of elevated filling pressures 2. Moderately dilated left atrium 3. Mild mitral regurgitation 4. Mildly elevated right ventricular systolic pressure with significant elevated right atrial pressures 5. No gross pericardial effusion Findings Procedure Information Contrast agent, definity, is being given per protocol without apparent complications. Left Ventricle Normal left ventricular size, thickness, and systolic function. The visually estimated ejection fraction is between 65-70%. Spectral Doppler is indicative of a restrictive filling pattern. Elevated filling pressures. There is mild septal asymmetric hypertrophy. Right Ventricle Normal right ventricular cavity size and systolic function. Atria The left atrium is moderately dilated. Interatrial shunt cannot be excluded. The right atrium is likely dilated. Aortic Valve There is mild calcification of the aortic valve. There is no aortic valve stenosis. There is no aortic valve regurgitation. Mitral Valve There is mild anterior and posterior mitral leaflet thickening. There is mild mitral valve regurgitation. There is no mitral valve stenosis. Pulmonic Valve The pulmonic valve was not well visualized. Tricuspid Valve Likely normal tricuspid valve structure and function. There is mild tricuspid valve regurgitation. Significantly elevated right atrial pressure. Mild pulmonary hypertension is present. Great Vessels All visible segments of the aorta are normal in size. The pulmonary artery was not well visualized. Venous The inferior vena cava is moderately dilated and does not collapse with inspiration. Pericardium/Pleural There is no evidence of pericardial effusion. Prior Study Comparison No prior study available for comparison. Measurements 2D Linear Measurements IVSd: 1.32 0.6-0.9/0.6-1.0 cm LVIDd: 3.29 3.9-5.3/4.2-5.9 cm LVIDd Index: 1.94 2.4-3.2/2.2-3.1 cm/m2 LVIDs: 2.51 2.0-3.6 cm LVPWd: 1.09 0.7-1.1 cm LA Diam: 3.30 2.7-3.8/3.0-4.0 cm LAIDs Index: 1.94 1.5-2.3 cm/m2 LV Mass: 155.56 67-162/88-224 g LV Mass Index: 91.51 43-95/49-115 g/m2 LVOT Diam: 1.90 3.0+(-)1.3 cm 2D Systolic Function EF 4C: 65.80 >55% EF 2C: 70.00 >55% EF BiP: 67.20 >55% Mitral Valve MV Pk E: 0.93 MV PK A: 0.51 MV Decel Time: 127.00 E/A: 1.80 E'Lateral: 6.31 E'Medial: 5.87 E/E' Med: 15.80 E/E' Lat: 14.70 PHT: 37.00 MVA PHT: 5.95 Decel Gilmer: 7.34 Aortic Valve AoV Pk Gene: 0.89 AoV Mn Gene: 0.66 AoV VTI: 0.21 AoV Pk Grad: 3.00 Aov Mn Grad: 2.00 AYDEN Cont.VTI: 2.53 LVOT LVOT Pk Gene: 0.83 LVOT Mn Gene: 0.59 LVOT VTI: 0.19 LVOT Pk Grad: 3.00 LVOT Mn Grad: 2.00 LVOT Diam: 1.90 LVOT Area: 2.84 Diastolic Function MV Pk E: 0.93 MV Pk A: 0.51 E/A: 1.80 E'Medial: 5.87 E/E' Med: 15.80 E' Laterial: 6.31 E/E' Lat: 14.70 Right Ventricle TAPSE (mm): 19.10 TVS' Gene: 8.27 Tricuspid Valve TR Pk Gene: 2.69 TR Pk Grad: 29.00 RA Press: 15.00 RVSP: 44.00 Great Vessels Aorta Sinus of Valsalva: 3.30 2.0-3.5 cm Ao Asc: 3.10 2.1-3.4 cm Pulmonary Valve PV Pk Gene: 0.64 Peak PV Grad: 2.00 Updated in Other Vendor System with Status of Final Mik Dunlap MD electronically signed on 06/07/2022 4:20:49 PM with status of Final
[2022-06-07 07:11] LABS: Alanine Aminotransferase 17 U/L (0-31); Albumin Level 3.1 g/dL (3.5-5.0); Alkaline Phosphatase 75 U/L (39-117); Anion Gap 10 (12-20); Aspartate Amino Transferase 24 U/L (5-31); Bilirubin Total 0.8 mg/dL (0.0-1.0); C Reactive Protein 10.32 mg/dL (< or = 0.50); Calcium 8.5 mg/dL (8.4-10.2); Carbon Dioxide 26 mmol/L (22-29); Chloride 108 mmol/L (96-108); Glucose Random 102 mg/dL (60-115); Potassium 3.4 mmol/L (3.3-5.1); Sodium 141 mmol/L (135-145); Total Protein 5.3 g/dL (6.5-8.0)
[2022-06-07 07:20] LABS: Blood Urea Nitrogen 16 mg/dL (9-16); Creatinine Clr Calc Pharmacy 31.5; Estimated Glomerular Filt Rate 39
--- NOTE | 2022-06-07 07:52 | PM.PNORT ---
Subjective Subjective Date of Service: 06/07/22 Interval history: Patient resting comfortably in bed. Pleasantly confused at baseline. Sitter at bedside. Overnight patient had an episode of A. Fib with RVR last night. Pending cardiology evaluation. Patient falls asleep during interview. No additional complaints. Physical Exam Vital Signs: Vital Signs: Last Vital Signs Temp 96.6 F L 06/07/22 07:33 Pulse 66 06/07/22 07:33 Resp 18 06/07/22 07:33 BP 132/65 06/07/22 07:33 Pulse Ox 100 06/07/22 07:33 O2 Del Method 06/07/22 07:33 O2 Flow Rate 2 06/07/22 07:33 BMI result Body Mass Index 19.7 Const: General: cooperative, healthy appearing and no acute distress Resp: Effort & Inspection: normal respiratory effort and able to speak in complete sentences Cardio: Rate: regular rate Peripheral pulses: Peripheral pulses 2+ throughout GI: Palpation (GI): Soft to palpation Skin: Lesions: no lesions Rashes: no rashes Extrem: Other: Right elbow area over the olecranon draining purulent discharge. Surrounding erythema persists. NVI. Procedures Date of Service Date of Service: 06/07/22 Progress Note: A&P Assessment and plan (1) Cellulitis: Status: Acute Assessment and Plan: Gentle ROM Wound care as appropriate Pending evaluation by Dr. Gonzáles for possibility of I&D later today Cardiology clearance needed Remain NPO in event patient is cleared for OR later this afternoon (2) Weakness: Status: Acute Time Spent With Patient Time: Total time managing care of this patient today ____ minutes. Quality Stroke Does the patient have a stroke diagnosis?: No VTE Prior VTE?: No VTE Risk Level:: Medical - moderate - high VTE Device Contraindication: Treatment Not Indicated VTE Drug Contraindication: N/A - Med Ordered
--- NOTE | 2022-06-07 08:46 | HE.PHANOTE ---
RE: [email or web address] Patient's renal function worsened, so I decreased dose to 750mg Q24 with predicted AUC of 480mg/L. Next level to be drawn before 4th dose on 06/08/22 @0700
[2022-06-07] MEDS: Propranolol HCL LA 60 MG CAP.SA.24H PO (08:55)
[2022-06-07] MEDS: Gabapentin 100 MG CAPSULE 200 MG PO ×2 (08:56→21:02)
[2022-06-07] MEDS: PARoxetine HCL 20 MG TABLET PO (08:56)
[2022-06-07] MEDS: 0.9 % Sodium Chloride Flush 3 ML SYRINGE IVFLUSH ×3 (08:56→21:06)
[2022-06-07] MEDS: vancomycin HCL 750 MG in 0.9 % Sodium Chloride 250 ML 265 MG IV (08:56)
[2022-06-07] MEDS: Cholecalciferol (Vitamin D3) 25 MCG TABLET PO (08:56)
--- NOTE | 2022-06-07 10:30 | PM.CNCAR ---
History of Present Illness History of Present Illness Date of Service: 06/07/22 Requesting physician: Gloria Scott Consult reason: atrial fibrillation Chief complaint: weakness Narrative: I was consulted to see Sania in cardiology consultation today for atrial fibrillation. Patient is a poor historian due to her dementia. History obtained from the chart. Patient currently not complaining of any cardiac symptoms. She was drifting off to sleep in between conversation. Difficult history. She was brought to the hospital after failure to thrive and fall and weakness. She was noted to have cellulitis/abscess on her right elbow. She is planned to undergo incision and drainage. She had develop atrial fibrillation but has converted back to sinus rhythm at this point in time. She did not report any palpitations that was obvious. She is currently denying any chest pain or shortness of breath. Review of Systems Review of Systems: Yes Unobtainable due to mental status PMFSH Past Medical History Medical History Anxiety Dementia Social History Social History Household Members: Spouse Housing: House Do you presently have visiting nurse or other home services: No Patient Tobacco Use Status: Never used Tobacco Meds Allergies Allergy/AdvReac Type Severity Reaction Status Date / Time Sulfa (Sulfonamide Allergy Unknown Unknown Unverified 06/05/22 04:56 Antibiotics) Active Medications: Current Medications Acetaminophen (Acetaminophen 325 Mg Tablet) 650 mg PO Q6H PRN PRN Reason: Pain, Mild (Pain Scale 1-3) Last Admin: 06/06/22 10:13 Dose: 650 mg Alprazolam (Alprazolam 0.25 Mg Tablet) 0.25 mg PO BID PRN PRN Reason: anxiety Last Admin: 06/06/22 21:04 Dose: 0.25 mg Apixaban (Apixaban 5 Mg Tablet) 5 mg PO BID [facility] Last Admin: 06/07/22 08:05 Dose: Not Given Donepezil HCl (Donepezil Hcl 10 Mg Tablet) 10 mg PO BEDTIME [facility] Last Admin: 06/06/22 20:40 Dose: 10 mg Gabapentin (Gabapentin 100 Mg Capsule) 200 mg PO BID [facility] Last Admin: 06/07/22 08:56 Dose: 200 mg Vancomycin HCl 750 mg/ Sodium (Chloride) 265 mls @ 265 mls/hr IV Q24H [facility] Last Infusion: 06/07/22 10:03 Dose: Infused Ondansetron HCl (Ondansetron Hcl 4 Mg/2 Ml Vial) 4 mg IVPUSH Q8H PRN PRN Reason: Nausea and Vomiting Paroxetine HCl (Paroxetine Hcl 20 Mg Tablet) 20 mg PO DAILY [facility] Last Admin: 06/07/22 08:56 Dose: 20 mg Pharmacy Consult (Consult Rx Perform Med Rec) 1 each MISCELLANE ONCE PRN PRN Reason: Consult order Pharmacy Consult (Consult Rx Vancomycin Dosing) 1 each MISCELLANE DAILY PRN PRN Reason: Consult order Propranolol HCl (Propranolol Hcl La 60 Mg Cap.Sa.24h) 60 mg PO DAILY [facility]; Protocol Last Admin: 06/07/22 08:55 Dose: 60 mg Sodium Chloride (0.9 % Sodium Chloride Flush 3 Ml Syringe) 3 ml IVFLUSH QSHIFT [facility] Last Admin: 06/07/22 08:56 Dose: 3 ml Vitamin D (Cholecalciferol (Vitamin D3) 25 Mcg Tablet) 25 mcg PO DAILY [facility] Last Admin: 06/07/22 08:56 Dose: 25 mcg Home Medications Medication Instructions Recorded Confirmed Last Taken Type alprazolam 0.25 mg tablet 1 tab PO BID PRN anxiety 06/05/22 06/05/22 Unknown History cholecalciferol (vitamin D3) 25 25 mcg PO DAILY 06/05/22 06/05/22 06/04/22 History mcg (1,000 unit) tablet (Vitamin D3) denosumab 60 mg/mL subcutaneous 60 mg subcut DAILY 06/05/22 06/05/22 3 Months Ago History syringe (Prolia) ~03/06/22 donepezil 10 mg tablet 1 tab PO BEDTIME 06/05/22 06/05/22 06/04/22 History gabapentin 100 mg capsule 2 cap PO BID 06/05/22 06/05/22 06/04/22 History paroxetine HCl 20 mg tablet 1 tab PO DAILY 06/05/22 06/05/22 06/04/22 History propranolol 60 mg capsule,24 1 cap PO DAILY 06/05/22 06/05/22 06/04/22 History hr,extended release vitamin A 10,000 unit capsule 10,000 unit PO DAILY 06/05/22 06/05/22 06/04/22 History Physical Exam Vital Signs: Vital Signs: Last Vital Signs Temp 96.6 F L 06/07/22 07:33 Pulse 66 06/07/22 07:33 Resp 18 06/07/22 07:33 BP 132/65 06/07/22 07:33 Pulse Ox 100 06/07/22 07:33 O2 Del Method 06/07/22 07:33 O2 Flow Rate 2 06/07/22 07:33 BMI result Body Mass Index 19.7 Const: General: comfortable, no acute distress and other (Sleepy) Nutritional Appearance: underweight HEENT: Head: Yes normocephalic and Yes atraumatic Neck: Neck: Yes trachea midline, Yes supple and Yes no JVD Resp: Effort & Inspection: normal respiratory effort Auscultation: clear to auscultation bilaterally Cardio: Jugular venous distension: no JVD Palpation: normal PMI Rate: regular rate Rhythm: regular rhythm Heart sounds: S1 normal heart sound present, S2 normal heart sound present, no click, no gallops and no murmurs GI: Auscultation: normal bowel sounds Skin: General skin exam: no rashes or lesions noted Neuro: General: moves all extremities Objective Labs and Meds Result diagrams: 06/07/22 05:35 06/07/22 05:35 Lab results: Laboratory Results - last 24 hr 06/06/22 06/07/22 06/07/22 23:15 05:35 05:35 WBC 7.5 RBC 3.77 L Hgb 11.2 L Hct 33.6 L MCV 89.1 MCH 29.7 MCHC 33.3 RDW 13.2 Plt Count 220 MPV 10.9 Immature Gran % (Auto) 0.3 Neut % (Auto) 66.4 Lymph % (Auto) 18.6 L [place] % (Auto) 11.5 H Eos % (Auto) 2.8 Baso % (Auto) 0.4 Lymph # (Auto) 1.4 [place] # (Auto) 0.9 Eos # (Auto) 0.2 Baso # (Auto) 0.0 Abs Immat Gran (auto) 0.02 Absolute Neuts (auto) 5.0 Absolute Nucleated RBC 0.000 Nucleated RBC % (auto) 0.0 Sodium 141 Potassium 3.4 Chloride 108 Carbon Dioxide 26 Anion Gap 10 L BUN 16 Creatinine 1.32 Estim Creat Clear Calc 31.5 Estimated GFR 39 Random Glucose 102 Calcium 8.5 Total Bilirubin 0.8 AST 24 ALT 17 Alkaline Phosphatase 75 C-Reactive Protein 10.32 H Total Protein 5.3 L Albumin 3.1 L C. difficile Tox B Gene NEGATIVE Assessment and Plan (1) Paroxysmal atrial fibrillation: Status: Acute Paroxysmal atrial fibrillation this elderly woman without any obvious reported symptoms although this is difficult to determine. Has converted back to sinus rhythm. Patient had no ischemic symptoms at that time and no ischemic looking EKG changes. Please repeat EKG while in sinus rhythm to document. For now will be treated medically. Can increase propranolol to 80 mg daily. Also consider oral anticoagulation therapy to reduce stroke with Eliquis 2.5 mg b.i.d. and institute fall prevention techniques and education for her . She is scheduled to undergo incision and drainage of her right elbow abscess. I would do this under minimal sedation and local block clear cardiac status and cannot evaluate her exercise capacity given her dementia. Clinically appears to be not in heart failure or having any acute signs of myocardial ischemia at this point in time. She is optimized to undergo this procedure with above precautions. Will sign of the case at this point in time. Thank you for allowing me to partake in her care Time Spent With Patient Time: Total time managing care of this patient today ____ minutes. Procedures Date of Service Date of Service: 06/07/22
--- NOTE | 2022-06-07 10:50 | P.PNIM_ITS ---
Subjective Subjective Date of Service: 06/07/22 Interval History: Seen in follow up for cellulitis, new onset afib rvr Interval history: Pt laying in bed somewhat somnolant. She has not complaints. Converted to sinus rhythm overnight. Review of Systems General: No fevers, malaise, unintentional weight loss Cardiovascular: No chest pain, palpitations, or leg edema Respiratory: No shortness of breath, wheezing, cough GI:No abdominal pain, nausea, vomiting, diarrhea MSK: No myalgia, back pain Neuro: No headaches, weakness, paresthesias Skin: No rashes or lesions, +redness, warmth, drainage right elbow Physical Exam Vital Signs: Vital Signs: Last Vital Signs Temp 96.6 F L 06/07/22 07:33 Pulse 66 06/07/22 07:33 Resp 18 06/07/22 07:33 BP 132/65 06/07/22 07:33 Pulse Ox 100 06/07/22 07:33 O2 Del Method 06/07/22 07:33 O2 Flow Rate 2 06/07/22 07:33 BMI result Body Mass Index 19.7 Constitutional - Awake and Alert, No apparent distress Eyes - PERRLA, EOMI Cardiovascular - S1S2, RRR, No edema Respiratory - Normal lung expansion, Normal respiratory effort, No respiratory distress, CTA bilaterally Gastrointestinal - NT / ND; +BS; No rebound or guarding Extremities - no calf tenderness bilaterally, no swelling Skin - Warm/Dry. Slight improvement in erythema and warmth of right elbow with copious thick purulent drainage over the lateral epicondyle/olecranon Neurological - Alert & oriented x3 Psychological - Appropriate affect Objective Data Active Medications Acetaminophen (Acetaminophen 325 Mg Tablet) 650 mg PO Q6H PRN PRN Reason: Pain, Mild (Pain Scale 1-3) Last Admin: 06/06/22 10:13 Dose: 650 mg Documented By: SEBASTIAN Alprazolam (Alprazolam 0.25 Mg Tablet) 0.25 mg PO BID PRN PRN Reason: anxiety Last Admin: 06/06/22 21:04 Dose: 0.25 mg Documented By: ALEJANDRA Apixaban (Apixaban 5 Mg Tablet) 5 mg PO BID [facility] Last Admin: 06/07/22 08:05 Dose: Not Given Documented By: SEBASTIAN Non-Admin Reason: Physician Approved Donepezil HCl (Donepezil Hcl 10 Mg Tablet) 10 mg PO BEDTIME [facility] Last Admin: 06/06/22 20:40 Dose: 10 mg Documented By: ALEJANDRA Gabapentin (Gabapentin 100 Mg Capsule) 200 mg PO BID [facility] Last Admin: 06/07/22 08:56 Dose: 200 mg Documented By: SEBASTIAN Vancomycin HCl 750 mg/ Sodium (Chloride) 265 mls @ 265 mls/hr IV Q24H [facility] Last Infusion: 06/07/22 10:03 Dose: 0 mls/hr Documented By: SEBASTIAN Ondansetron HCl (Ondansetron Hcl 4 Mg/2 Ml Vial) 4 mg IVPUSH Q8H PRN PRN Reason: Nausea and Vomiting Paroxetine HCl (Paroxetine Hcl 20 Mg Tablet) 20 mg PO DAILY [facility] Last Admin: 06/07/22 08:56 Dose: 20 mg Documented By: SEBASTIAN Pharmacy Consult (Consult Rx Perform Med Rec) 1 each MISCELLANE ONCE PRN PRN Reason: Consult order Pharmacy Consult (Consult Rx Vancomycin Dosing) 1 each MISCELLANE DAILY PRN PRN Reason: Consult order Propranolol HCl (Propranolol Hcl La 60 Mg Cap.Sa.24h) 60 mg PO DAILY [facility]; Pr otocol Last Admin: 06/07/22 08:55 Dose: 60 mg Documented By: SEBASTIAN Sodium Chloride (0.9 % Sodium Chloride Flush 3 Ml Syringe) 3 ml IVFLUSH QSHIFT [facility] Last Admin: 06/07/22 08:56 Dose: 3 ml Documented By: SEBASTIAN Vitamin D (Cholecalciferol (Vitamin D3) 25 Mcg Tablet) 25 mcg PO DAILY [facility] Last Admin: 06/07/22 08:56 Dose: 25 mcg Documented By: SEBASTIAN Labs CBC & Chem 7: 06/07/22 05:35 06/07/22 05:35 Labs: Laboratory Results - last 24 hr 06/06/22 06/07/22 06/07/22 23:15 05:35 05:35 MCV 89.1 MCH 29.7 MCHC 33.3 RDW 13.2 Plt Count 220 MPV 10.9 Immature Gran % (Auto) 0.3 Neut % (Auto) 66.4 Lymph % (Auto) 18.6 L [place] % (Auto) 11.5 H Eos % (Auto) 2.8 Baso % (Auto) 0.4 Lymph # (Auto) 1.4 [place] # (Auto) 0.9 Eos # (Auto) 0.2 Baso # (Auto) 0.0 Abs Immat Gran (auto) 0.02 Absolute Neuts (auto) 5.0 Absolute Nucleated RBC 0.000 Nucleated RBC % (auto) 0.0 Anion Gap 10 L Estim Creat Clear Calc 31.5 Estimated GFR 39 Random Glucose 102 Calcium 8.5 Total Bilirubin 0.8 AST 24 ALT 17 Alkaline Phosphatase 75 C-Reactive Protein 10.32 H Total Protein 5.3 L Albumin 3.1 L C. difficile Tox B Gene NEGATIVE Microbiology Microbiology Results: Microbiology 06/06/22 14:15 Gram Stain - Final Elbow Right Routine Culture - Preliminary Staphylococcus species 06/05/22 06:11 Blood Culture - Preliminary Blood - Venous No growth after 48 hours. 06/05/22 05:22 Blood Culture - Preliminary Blood - Venous No growth after 48 hours. Assessment and Plan (1) Cellulitis: Status: Acute (2) Weakness: Status: Acute (3) Paroxysmal atrial fibrillation: Status: Acute Plan 81 yo F with suspected dementia and anxiety presenting to the ED with weakness after sustaining a fall about 2 days prior to admission. It appears that she has developed R elbow cellulitis and new onset afib with rvr # R elbow purulent cellulitis -CT negative for abscess -Wound culture showing staph, susceptibility pending -Continue vanco -Per ortho surgery, warm soaks, no debridement at this time -WBC now normal, CRP trending down -Follow CBC, cultures, trend CRP # paroxysmal AFib- rate now controlled -Given push dilt 10mg and lopressor 5mg. Converted to sinus rhythm on telemetry overnight. EKG pending -Rate now controlled in 60s -Monitor VS -Lovenox 60mg BID for anticoagulation for now in case of need for surgical debridement. Start eliquis 2.5mg BID on discharge cardiology -Increase propranolol to 80mg daily per cardiology -Appreciate cardiology input -Echo ordered # Generalized weakness -possibly from acute infection -PT eval #Unspecified Dementia- mental status seem baseline -without behavioral disturbance #Hyperbilirubinemia no abdominal symptoms, could be related to acute infection will trend Full Code DVT pptx - lovenox Pt requires ongoing inpt stay for management of purulent cellulitis requiring surgical debridement as well as significant weakness requiring PT evaluation and possible STR, now with new onset Afib requiring close monitoring of VS and continuous cardiac monitoring. Quality Stroke Does the patient have a stroke diagnosis?: No VTE Prior VTE?: No VTE Risk Level:: Medical - moderate - high VTE Device Contraindication: Treatment Not Indicated VTE Drug Contraindication: N/A - Med Ordered
[2022-06-07 11:22] LABS: Adenovirus F 40/41 Not Detected (Not Detect.); Astrovirus Not Detected (Not Detect.); Campylobacter Not Detected (Not Detect.); Cryptosporidium Not Detected (Not Detect.); Cyclospora cayetanensis Not Detected (Not Detect.); E. coli EAEC Not Detected (Not Detect.); E. coli EPEC Not Detected (Not Detect.); E. coli ETEC Not Detected (Not Detect.); E. coli STEC Not Detected (Not Detect.); Entamoeba histolytica Not Detected (Not Detect.); Giardia lamblia Not Detected (Not Detect.); Norovirus GI/GII Not Detected (Not Detect.); Plesiomonas shigelloides Not Detected (Not Detect.); Rotavirus A Not Detected (Not Detect.); Salmonella Not Detected (Not Detect.); Sapovirus Not Detected (Not Detect.); Shigella sp./EIEC Not Detected (Not Detect.); Vibrio Not Detected (Not Detect.); Vibrio Cholerae Not Detected (Not Detect.); Yersinia enterocolitica Not Detected (Not Detect.)
[2022-06-07 13:55] LABS: Hematocrit 36.1 % (37.0-47.0); Hemoglobin 11.9 g/dl (12.0-16.0); Mean Corpuscular Hemoglobin 29.5 pg (27.0-33.0); Mean Corpuscular Volume 89.6 fL (80.0-98.0); Mean Platelet Volume 10.2 fL (9.4-12.3); Platelet Count 212 X10*3/uL (160-400); Red Blood Count 4.03 X10*6/uL (4.20-5.50); Red Cell Distribution Width 13.2 % (11.0-16.0); White Blood Count 9.8 X10*3/uL (4.8-10.8)
[2022-06-07 14:05] LABS: INTERNATIONAL NORM RATIO 1.1 (0.9-1.1); Prothrombin Time 12.2 SEC (10.0-13.1)
[2022-06-07 14:08] LABS: Partial Thromboplastin Time 24.5 SEC (26.0-36.4)
[2022-06-07] MEDS: Enoxaparin Sodium 60 MG/0.6 ML SYRINGE SUBCUT (14:48)
--- NOTE | 2022-06-07 15:03 | PM.PNORT ---
Subjective Subjective Date of Service: 06/07/22 Interval history: Asked to see patient with posterior right elbow infection and draining wound. Patient with significant dementia. IV antibiotics recently started. Physical Exam Vital Signs: Vital Signs: Last Vital Signs Temp 97.6 F 06/07/22 11:15 Pulse 52 06/07/22 11:15 Resp 17 06/07/22 11:15 BP 137/76 06/07/22 11:15 Pulse Ox 95 06/07/22 11:15 O2 Del Method 06/07/22 11:15 O2 Flow Rate 2 06/07/22 07:33 BMI result Body Mass Index 19.7 Extrem: Other: Erythema and warmth of right olecranon bursa. Area of erythema limited to olecranon bursa. No surrounding swelling No evidence of joint infection. Small amount of hematoma expressed from 3 mm open wound. No gross purulence. Procedures Date of Service Date of Service: 06/07/22 Progress Note: A&P Assessment and plan (1) Cellulitis: Status: Acute Plan Assessment and plan: 1.Possible septic right olecranon bursa, verses localized cellulitis. Patient seen and evaluated also with Dr. Varela. We believe non operative management would be best. Recommend warm soaks in soapy water about 3 times a day. A Q- tip can be used to keep open the small wound to facilitate any drainage. IV antibiotics. Time Spent With Patient Time: Total time managing care of this patient today ____ minutes. Quality Stroke Does the patient have a stroke diagnosis?: No VTE Prior VTE?: No VTE Risk Level:: Medical - moderate - high VTE Device Contraindication: Treatment Not Indicated VTE Drug Contraindication: N/A - Med Ordered
[2022-06-07] MEDS: Donepezil HCl 10 MG TABLET PO (21:02)
[2022-06-08] MEDS: Enoxaparin Sodium 60 MG/0.6 ML SYRINGE SUBCUT ×2 (00:40→12:48)
[2022-06-08 03:36] VITALS: BP 157/78; PULSE 63; RESP 16; TEMP 36.9; O2SAT 96
[2022-06-08 06:54] LABS: Hematocrit 38.4 % (37.0-47.0); Hemoglobin 12.9 g/dl (12.0-16.0); Mean Corpuscular HGB Conc 33.6 g/dl (31.0-35.0); Mean Corpuscular Hemoglobin 29.7 pg (27.0-33.0); Mean Corpuscular Volume 88.5 fL (80.0-98.0); Platelet Count 256 X10*3/uL (160-400); Red Blood Count 4.34 X10*6/uL (4.20-5.50); Red Cell Distribution Width 13.2 % (11.0-16.0); White Blood Count 8.9 X10*3/uL (4.8-10.8)
[2022-06-08 07:13] LABS: Anion Gap 13 (12-20); Blood Urea Nitrogen 20 mg/dL (9-16); Carbon Dioxide 25 mmol/L (22-29); Chloride 106 mmol/L (96-108); Creatinine Clr Calc Pharmacy 31.1; Estimated Glomerular Filt Rate 38; Glucose Random 91 mg/dL (60-115); Potassium 3.9 mmol/L (3.3-5.1); Sodium 140 mmol/L (135-145)
[2022-06-08 07:15] LABS: Vancomycin Trough 11.3 mcg/mL (10.0-20.0)
[2022-06-08 07:27] VITALS: BP 148/72; PULSE 83; RESP 18; TEMP 36.9; O2SAT 95
[2022-06-08] MEDS: PARoxetine HCL 20 MG TABLET PO (09:04)
[2022-06-08] MEDS: 0.9 % Sodium Chloride Flush 3 ML SYRINGE IVFLUSH ×2 (09:04→20:24)
[2022-06-08] MEDS: Cholecalciferol (Vitamin D3) 25 MCG TABLET PO (09:04)
[2022-06-08] MEDS: Propranolol HCL LA 80 MG CAP.SA.24H PO (09:04)
[2022-06-08] MEDS: Gabapentin 100 MG CAPSULE 200 MG PO ×2 (09:04→20:24)
[2022-06-08] MEDS: vancomycin HCL 750 MG in 0.9 % Sodium Chloride 250 ML 265 MG IV (09:05)
[2022-06-08 11:03] VITALS: BP 118/59; PULSE 63; RESP 16; TEMP 36.3; O2SAT 95
--- NOTE | 2022-06-08 12:45 | HO.PM.IMPN ---
Subjective Subjective Date of Service: 06/08/22 Interval History: Feels comfortable, out of energy Denies any fever or chills Small amount of drainage from the elbow No reported other overnight events Review of Systems General: No fevers, malaise, unintentional weight loss Cardiovascular: No chest pain, palpitations, or leg edema Respiratory: No shortness of breath, wheezing, cough GI:No abdominal pain, nausea, vomiting, diarrhea MSK: No myalgia, back pain Neuro: No headaches, weakness, paresthesias Skin: No rashes or lesions, +redness, warmth, drainage right elbow Physical Exam Vital Signs: Vital Signs: Last Vital Signs Temp 97.3 F 06/08/22 11:03 Pulse 63 06/08/22 11:03 Resp 16 06/08/22 11:03 BP 118/59 L 06/08/22 11:03 Pulse Ox 95 06/08/22 11:03 O2 Del Method 06/08/22 11:03 O2 Flow Rate 2 06/07/22 07:33 BMI result Body Mass Index 19.7 Const: Other: Constitutional - Awake and Alert, No apparent distress Eyes - PERRLA, EOMI Cardiovascular - S1S2, RRR, No edema Respiratory - Normal lung expansion, Normal respiratory effort, No respiratory distress, CTA bilaterally Gastrointestinal - NT / ND; +BS; No rebound or guarding - No CVA tenderness Extremities - no calf tenderness bilaterally, no swelling Musculoskeletal - ROM in the R elbow limited secondary to swelling / pain Skin - Erythema / warmth near the R elbow join; covered with dressing, fall passive range of motion with no tenderness or pain Neurological - Oriented to self, otherwise disoriented; no focal deficits Psychological - Appropriate affect Objective Data Active Medications Acetaminophen (Acetaminophen 325 Mg Tablet) 650 mg PO Q6H PRN PRN Reason: Pain, Mild (Pain Scale 1-3) Last Admin: 06/06/22 10:13 Dose: 650 mg Documented By: SEBASTIAN Alprazolam (Alprazolam 0.25 Mg Tablet) 0.25 mg PO BID PRN PRN Reason: anxiety Last Admin: 06/06/22 21:04 Dose: 0.25 mg Documented By: ALEJANDRA Donepezil HCl (Donepezil Hcl 10 Mg Tablet) 10 mg PO BEDTIME [facility] Last Admin: 06/07/22 21:02 Dose: 10 mg Documented By: LENORA Enoxaparin Sodium (Enoxaparin Sodium 60 Mg/0.6 Ml Syringe) 60 mg SUBCUT Q12H [facility] Last Admin: 06/08/22 00:40 Dose: 60 mg Documented By: LENORA Gabapentin (Gabapentin 100 Mg Capsule) 200 mg PO BID [facility] Last Admin: 06/08/22 09:04 Dose: 200 mg Documented By: KAREN Vancomycin HCl 750 mg/ Sodium (Chloride) 265 mls @ 265 mls/hr IV Q24H [facility] Last Infusion: 06/08/22 10:46 Dose: 0 mls/hr Documented By: KAREN Ondansetron HCl (Ondansetron Hcl 4 Mg/2 Ml Vial) 4 mg IVPUSH Q8H PRN PRN Reason: Nausea and Vomiting Paroxetine HCl (Paroxetine Hcl 20 Mg Tablet) 20 mg PO DAILY [facility] Last Admin: 06/08/22 09:04 Dose: 20 mg Documented By: KAREN Pharmacy Consult (Consult Rx Perform Med Rec) 1 each MISCELLANE ONCE PRN PRN Reason: Consult order Pharmacy Consult (Consult Rx Vancomycin Dosing) 1 each MISCELLANE DAILY PRN PRN Reason: Consult order Propranolol HCl (Propranolol Hcl La 80 Mg Cap.Sa.24h) 80 mg PO DAILY [facility]; Protocol Last Admin: 06/08/22 09:04 Dose: 80 mg Documented By: KAREN Sodium Chloride (0.9 % Sodium Chloride Flush 3 Ml Syringe) 3 ml IVFLUSH QSHIFT [facility] Last Admin: 06/08/22 09:04 Dose: 3 ml Documented By: KAREN Vitamin D (Cholecalciferol (Vitamin D3) 25 Mcg Tablet) 25 mcg PO DAILY [facility] Last Admin: 06/08/22 09:04 Dose: 25 mcg Documented By: KAREN Labs CBC & Chem 7: 06/08/22 06:45 06/08/22 06:45 Labs: Laboratory Results - last 24 hr 06/07/22 06/07/22 06/08/22 13:43 13:43 06:45 MCV 89.6 MCH 29.5 MCHC 33.0 RDW 13.2 Plt Count 212 MPV 10.2 Absolute Nucleated RBC 0.000 Nucleated RBC % (auto) 0.0 PT 12.2 INR 1.1 APTT 24.5 L Anion Gap Estim Creat Clear Calc Estimated GFR Random Glucose Calcium Vancomycin Trough 11.3 06/08/22 06/08/22 06:45 06:45 MCV 88.5 MCH 29.7 MCHC 33.6 RDW 13.2 Plt Count 256 MPV 10.0 Absolute Nucleated RBC 0.000 Nucleated RBC % (auto) 0.0 PT INR APTT Anion Gap 13 Estim Creat Clear Calc 31.1 Estimated GFR 38 Random Glucose 91 Calcium 9.0 Vancomycin Trough Microbiology Microbiology Results: Microbiology 06/06/22 14:15 Gram Stain - Final Elbow Right Routine Culture - Final Staphylococcus aureus 06/05/22 06:11 Blood Culture - Preliminary Blood - Venous No growth after 48 hours. Assessment and Plan (1) Paroxysmal atrial fibrillation: Status: Acute (2) Bursitis due to bacterial infection: Status: Acute Plan 81 yo F with suspected dementia and anxiety presenting to the ED with weakness after sustaining a fall about 2 days prior to admission. It appears that she has developed R elbow cellulitis and new onset afib with rvr # right elbow purulent bursitis CT negative for abscess Wound culture showing MSSA Discontinue vanco, start Amoxicillin Ortho team input appreciated, warm soaks, no debridement at this time, 2 weeks p.o. antibiotics CRP trending down Follow CBC, cultures, trend CRP # new onset paroxysmal AFib Converted to sinus rhythm on telemetry Start eliquis 2.5mg BID Increase propranolol to 80mg daily per cardiology Appreciate cardiology input Echo showing normal EF # Generalized weakness Likely from acute infection Pending PT eval #Unspecified Dementia mental status seem baseline without behavioral disturbance #Hyperbilirubinemia no abdominal symptoms, likely related to acute infection DVT pptx - lovenox Pt requires ongoing inpt stay for management of purulent bursitis requiring IV antibiotics as well as significant weakness requiring PT evaluation and possible STR, pending safe discharge plan Time Spent With Patient Time: Total time managing care of this patient today ____ minutes. Quality Stroke Does the patient have a stroke diagnosis?: No VTE Prior VTE?: No VTE Risk Level:: Medical - moderate - high VTE Device Contraindication: Treatment Not Indicated VTE Drug Contraindication: N/A - Med Ordered
[2022-06-08] MEDS: Amoxicillin 500 MG CAPSULE PO ×2 (14:31→22:40)
[2022-06-08 15:37] VITALS: BP 137/65; PULSE 66; RESP 16; TEMP 37.1; O2SAT 97
--- NOTE | 2022-06-08 16:21 | MHC.CM.PN ---
EMR REVIEWED, PER HOSPITALIST ANTIC PT SHOULD BE READY FOR D/C TOMORROW 06/09, PT REC'S STR AND KARTIK BAUMANN PREFERRED SNF IS [facility], REFERRAL SENT VIA [facility]. JOSE ALSO REPORTS PREFERRED VNA IS [facility] AND REFERRAL PLACED IN CASE PT IS UNABLE TO BE PLACED. CM WILL CONT TO FOLLOW D/C NEEDS.
[2022-06-08 19:42] VITALS: BP 127/66; PULSE 71; RESP 16; TEMP 36.9; O2SAT 95
[2022-06-08] MEDS: ALPRAZolam 0.25 MG TABLET PO (20:24)
[2022-06-08] MEDS: Apixaban 2.5 MG TABLET PO (20:24)
[2022-06-08] MEDS: Donepezil HCl 10 MG TABLET PO (20:24)
[2022-06-09 02:58] VITALS: BP 140/66; PULSE 66; RESP 16; TEMP 36.3; O2SAT 95
[2022-06-09 04:00] VITALS: BP 140/66; PULSE 66; RESP 16; TEMP 36.3; O2SAT 95
[2022-06-09] MEDS: Amoxicillin 500 MG CAPSULE PO ×2 (06:11→14:28)
[2022-06-09 06:50] LABS: Creatinine Clr Calc Pharmacy 33.6; Estimated Glomerular Filt Rate 42
[2022-06-09 08:00] VITALS: BP 156/88; PULSE 60; RESP 20; TEMP 36.2; O2SAT 94
[2022-06-09] MEDS: Apixaban 2.5 MG TABLET PO (09:45)
[2022-06-09] MEDS: Cholecalciferol (Vitamin D3) 25 MCG TABLET PO (09:45)
[2022-06-09] MEDS: Gabapentin 100 MG CAPSULE 200 MG PO (09:45)
[2022-06-09] MEDS: PARoxetine HCL 20 MG TABLET PO (09:45)
[2022-06-09] MEDS: 0.9 % Sodium Chloride Flush 3 ML SYRINGE IVFLUSH (09:45)
[2022-06-09] MEDS: Propranolol HCL LA 80 MG CAP.SA.24H PO (09:45)
--- NOTE | 2022-06-09 11:47 | MHC.CM.PN ---
Patient has been medically cleared for dc to SNF/STR today. Patient will dc to [facility] today at 4 PM, via [facility]. CM spoke with Patient's /HCP/Pool @ [phone] (Patient has Dementia) and he is aware of and in agreement with the dc plan. Last IMM addressed on 06/08/2022.
--- NOTE | 2022-06-09 11:53 | PM.DS ---
DS: Providers Provider Date of Service: 06/09/22 Date of admission: 06/05/22 08:49 Primary care physician: Nonstaff Physician Consults: 06/05/22 08:49 Consult to Orthopedics Routine Consulting Provider: Yvonne Chavez Reason for consultation: elbow cellulitis, ? septic bursitis 06/06/22 16:39 Consult to Cardiology Routine Consulting Provider: Mik Dunlap Reason for consultation: new onset afib rvr. Eval for OR debridement DS: Diagnosis Discharge Diagnosis (1) Paroxysmal atrial fibrillation: Status: Acute (2) Bursitis due to bacterial infection: Status: Acute (3) Weakness: Status: Acute DS: Summary Hospital Course Hospital Course: Admission note HPI The patient is an 81 yo F with a PMH of anxiety and dementia (per ED documentation) who presented to the ED for generalized weakness. The patient is currently forgetful (suspected chronic due to underlying dementia) and hence the history is obtained from the ED charts. A call was made to the the patient's , whom the patient resides with, but went unanswered. Per the ED provider documentation: Patient comes to the emergency room accompanied by her .? The reports that approximately 2 days ago, patient had a fall, landed on her elbows.? Patient states that she does not remember exactly why she fell.? Patient states that her was present, patient did not have any head strike, no loss of consciousness.? The reports that over the last 2 days, he has noticed that the patient is gradually becoming weaker.? Usually, patient is able to get up by herself, sometimes needs assistance getting up.? However, today patient has significant weakness getting up off the toilet and had no strength to walk.? Patient's called 911.? Patient's is concerned that he cannot take care his at home because she is so weak.? Patient denies any fever or chills.? Complaining of pain in her right elbow The patient is seen and examined in the Ed around 8:40 AM. She does not know where she is, nor the date/time. She states she came to the ED because of weakness. When asked about falls, she does not recall falling. She denies headache, blurred vision, chest pain, sob, abdominal pain. She states no not elbow pain, but does show signs of pain with ROM. Work up in the ED reveals a wbc count of 16; ESR is 44 and CRP 20. Elow XR is negative for acute fractures. A CT scan of the elbow is completed and pending read. She has been given IV zosyn and vancomcyin for presumed cellulitis? and abscess near the R elbow. She will not be admitted for further work up and treatment. Hospital course Start Eliquis 2.5 mg twice daily Increase propranolol to 80 mg daily Finished well more days of amoxicillin 500 mg 3 times a day To follow-up with orthopedic team as outpatient in 2 weeks, call Dr. Varela office Time Spent with Patient Time attestation: Total time managing care of this patient today ____ minutes. Discharge coordination time: Greater than 30 minutes Quality: Safe Use of Opioids Does Pt have an Active Cancer Diagnosis on the Problem List?: No Quality: Stroke Does the patient have a stroke diagnosis?: No Physical Exam Vital Signs: Vital Signs: Last Vital Signs Temp 97.2 F 06/09/22 08:00 Pulse 60 06/09/22 08:00 Resp 20 06/09/22 08:00 BP 156/88 H 06/09/22 08:00 Pulse Ox 94 06/09/22 08:00 O2 Del Method 06/09/22 08:00 O2 Flow Rate 2 06/07/22 07:33 BMI result Body Mass Index 19.7 Const: Other: Constitutional - Awake and Alert, No apparent distress Eyes - PERRLA, EOMI Cardiovascular - S1S2, RRR, No edema Respiratory - Normal lung expansion, Normal respiratory effort, No respiratory distress, CTA bilaterally Gastrointestinal - NT / ND; +BS; No rebound or guarding - No CVA tenderness Extremities - no calf tenderness bilaterally, no swelling Musculoskeletal - ROM in the R elbow limited secondary to swelling / pain Skin - Erythema / warmth near the R elbow join; covered with dressing, full passive range of motion with no tenderness or pain Neurological - Oriented to self, otherwise disoriented; no focal deficits Psychological - Appropriate affect DS: Data Data Completed and Pending Labs on day of discharge: Laboratory Results - last 24 hr 06/09/22 05:55 Creatinine 1.24 Estim Creat Clear Calc 33.6 Estimated GFR 42 Preliminary micro results at discharge 06/05/22 06:11 Blood Culture - Preliminary Blood - Venous No growth after 48 hours. 06/05/22 05:22 Blood Culture - Preliminary Blood - Venous No growth after 48 hours. Discharge Plan Discharge Anticipated Discharge Date/Time: 06/09/22 11:42 Patient Disposition: Xfer [facility] Discharge Diagnosis: Infected right elbow bursitis Paroxysmal atrial fibrillation Referrals: [facility] [Outside] - 1 Week Physician,Nonstaff [Primary Care Provider] - 1 Week Discharge Medications: New amoxicillin 500 mg Capsule 500 mg PO Q8H 12 Days Qty: 36 0RF Eliquis 2.5 mg Tablet 2.5 mg PO BID Qty: 60 2RF propranolol 80 mg Capsule,Extended Release 24hr 80 mg PO DAILY 30 Days Qty: 30 0RF Protocol: Hold for SBP/HR < HOLD for SBP < : 90 HOLD for HR < : 60 Continued donepezil 10 mg tablet 1 tab PO BEDTIME alprazolam 0.25 mg tablet 1 tab PO BID PRN (Reason: anxiety) vitamin A 10,000 unit Capsule 10,000 unit PO DAILY paroxetine HCl 20 mg tablet 1 tab PO DAILY gabapentin 100 mg capsule 2 cap PO BID cholecalciferol (vitamin D3) [Vitamin D3] 25 mcg (1,000 unit) Tablet 25 mcg PO DAILY Prolia 60 mg/mL syringe 60 mg subcut DAILY Discontinued propranolol 60 mg capsule,extended release 24 hr 1 cap PO DAILY Discharge Orders: Discharge Order (Routine); Ordered 06/09/22 Ordered By: Naman Gonzalez Diet: Advance to usual diet Activity on Discharge: As tolerated Stand Alone Forms: Patient Portal Discharge page Care Plan Goals: Read below Health Concerns: Read below Plan of Treatment: Read below Assessment: You were admitted to the hospital for evaluation of right elbow pain. Found to have infection of the bursa that was evaluated by orthopedic team recommended conservative treatment with antibiotics and drainage. Your symptoms improved significantly as you were able to participate with Physical therapy who recommended short-term rehab. You were evaluated by Cardiology team for any new onset irregular heart rhythm called atrial fibrillation. Started on blood thinners of Eliquis to prevent possible stroke. Start Eliquis 2.5 mg twice daily Increase propranolol to 80 mg daily Finished well more days of amoxicillin 500 mg 3 times a day To follow-up with orthopedic team as outpatient in 2 weeks, call Dr. Varela office Discharge Date/Time: 06/09/22 16:11
[2022-06-09 12:00] VITALS: BP 135/71; PULSE 65; RESP 20; TEMP 36.6; O2SAT 97
[2022-06-09 12:52] LABS: Influenza A PCR NEGATIVE (Negative); Influenza B PCR NEGATIVE (Negative); Resp Syncy Virus RNA Qual PCR NEGATIVE (Negative); SARS COV2 PCR INHOUSE NEGATIVE (Negative)
--- NOTE | 2022-06-09 13:21 | PC.NURSE ---
report received from overnight RN, medical assistant internal medicine per AUG. Pt had sitter at bedside, verbal orders to discontinue sitter, pt not showing any signs of behavioral / safety concerns. Bed alarm and camera remain in place. Call lance within reach. Pt to be discharged today, report given to receiving facility. EMS to transport pt at 1600. Call lance within reach, bed alarm on, camera in room.
== END 2022-06-09 16:11 | disposition skilled nursing facility (03) | DRG 603 ==
LOC: HO.ED 06:28 → HO.EDOVER 08:57 → HO.S3 18:44 → HO.IMC 06-09 01:31
PROVIDERS: Physician Assistant; Admitting Provider Family Medicine; Emergency Provider Emergency Medicine; Visit Provider Student in an Organized Health Care Education/Training Program
DX: L03.113 Cellulitis of right upper limb (principal); M71.121 Other infective bursitis, right elbow; I48.0 Paroxysmal atrial fibrillation; B95.61 Methicillin susceptible Staphylococcus aureus infection as the cause of diseases classified elsewhere; E80.6 Other disorders of bilirubin metabolism; F41.9 Anxiety disorder, unspecified; F03.90 Unspecified dementia, unspecified severity, without behavioral disturbance, psychotic disturbance, mood disturbance, and anxiety; Z20.822 Contact with and (suspected) exposure to COVID-19; Z88.2 Allergy status to sulfonamides; Z79.01 Long term (current) use of anticoagulants; Z79.899 Other long term (current) drug therapy
CPT/HCPCS: 0241U; 36415; 70450; 73070; 73201; 80048; 80053; 80076; 80202; 81001; 81003; 82550; 82565; 83605; 84484; 85025; 85027; 85610; 85652; 85730; 86140; 87040; 87070; 87077; 87186; 87205; 87493; 87507; 87635; 93005; 93306; 96361; 96365; 96375; 97162; 99285; J1650; J2543; J3370; Q9957; Q9967

== ENCOUNTER 2022-06-17 17:02 | Emergency (ER) | payer MEDICARE, BC, OTHER, SELFPAY ==
[2022-06-17 17:11] VITALS: BP 108/51; PULSE 70; RESP 16; TEMP 36.4; O2SAT 98; BMI 20.1
--- NOTE | 2022-06-17 17:25 | ED.ANXIETY ---
HPI - Anxiety General Chief Complaint: Anxiety Stated Complaint: sob Time Seen by Provider: 06/17/22 17:14 Source: patient and family Mode of arrival: EMS Limitations: no limitations History of Present Illness HPI narrative: Patient history of paroxysmal AFib right elbow bursitis and anxiety just discharged to intermediate on 06/03 was feeling very anxious and called the EMS patient was giving Xanax 0.5 mg at intermediate now patient is feeling much better no other complaints no chest pain or palpitation no shortness of breath patient had similar episodes in the past Related Data Home Medications Medication Instructions Recorded Confirmed alprazolam 0.25 mg tablet 1 tab PO BID PRN anxiety 06/05/22 06/05/22 cholecalciferol (vitamin D3) 25 25 mcg PO DAILY 06/05/22 06/05/22 mcg (1,000 unit) tablet (Vitamin D3) denosumab 60 mg/mL subcutaneous 60 mg subcut DAILY 06/05/22 06/05/22 syringe (Prolia) donepezil 10 mg tablet 1 tab PO BEDTIME 06/05/22 06/05/22 gabapentin 100 mg capsule 2 cap PO BID 06/05/22 06/05/22 paroxetine HCl 20 mg tablet 1 tab PO DAILY 06/05/22 06/05/22 vitamin A 10,000 unit capsule 10,000 unit PO DAILY 06/05/22 06/05/22 Previous Rx's Medication Instructions Recorded amoxicillin 500 mg capsule 500 mg PO Q8H 12 days #36 caps 06/09/22 apixaban 2.5 mg tablet (Eliquis) 2.5 mg PO BID #60 tabs 06/09/22 propranolol 80 mg capsule,24 80 mg PO DAILY 30 days #30 caps 06/09/22 hr,extended release Allergies Allergy/AdvReac Type Severity Reaction Status Date / Time Sulfa (Sulfonamide Allergy Unknown Unknown Unverified 06/05/22 04:56 Antibiotics) [facility] Past Medical History Medical History Anxiety Dementia Social History Social History Household Members: Spouse Housing: House Do you presently have visiting nurse or other home services: No Patient Tobacco Use Status: Never used Tobacco Advance Directives: No Advance Directives Information Provided: Yes Physical Exam Vital Signs: Vital Signs: Last Vital Signs Temp 97.6 F 06/17/22 17:11 Pulse 70 06/17/22 17:11 Resp 16 06/17/22 17:11 BP 108/51 L 06/17/22 17:11 Pulse Ox 98 06/17/22 17:11 O2 Del Method 06/17/22 17:11 BMI result Body Mass Index 20.1 Appearance: Alert. Oriented X3. No acute distress. Eyes: PERRLA, No Nystagmus ENT: Pharynx normal. Oral Mucosa moist Neck: Normal inspection. Neck supple. CVS: Normal heart rate and rhythm. Pulses normal. Respiratory: No respiratory distress. Equal air entry bilateral, no wheezing/rales/rhonchi Abdomen: Soft and nontender. Bowel sounds are present, no mass palpable, no CVA tenderness Skin: Skin warm and dry. Normal skin color. Normal skin turgor. Extremities: No lower extremity edema. No calf tenderness Neuro: Oriented X 3. No motor deficit. No sensory deficit.No cerebellar signs , cranial nerves II-XII intact Medical Decision Making Medical Decision Making MDM Narrative: Patient's son at the bedside aware of anxiety panic attacks in the past came for similar complaints after arrival patient feeling much better her vitals are stable will send the patient back to intermediate with family Independent Interpretation I performed an independent interpretation of an: EKG Interpretation: Normal sinus rhythm heart rate 68 beats per minute normal interval normal axis no acute ST wave changes Discharge Plan Discharge Clinical Impression: Acute anxiety Patient Disposition: Xfer SNF Transfer Details: Patient vitals stable anxiety improved normal sinus rhythm on EKG Instructions: Anxiety (ED) Additional Instructions: Continue your medications Prescriptions: No Action donepezil 10 mg tablet 1 tab PO BEDTIME alprazolam 0.25 mg tablet 1 tab PO BID PRN (Reason: anxiety) vitamin A 10,000 unit Capsule 10,000 unit PO DAILY paroxetine HCl 20 mg tablet 1 tab PO DAILY gabapentin 100 mg capsule 2 cap PO BID cholecalciferol (vitamin D3) [Vitamin D3] 25 mcg (1,000 unit) Tablet 25 mcg PO DAILY Prolia 60 mg/mL syringe 60 mg subcut DAILY amoxicillin 500 mg Capsule 500 mg PO Q8H 12 Days Qty: 36 0RF Eliquis 2.5 mg Tablet 2.5 mg PO BID Qty: 60 2RF propranolol 80 mg Capsule,Extended Release 24hr 80 mg PO DAILY 30 Days Qty: 30 0RF Protocol: Hold for SBP/HR < HOLD for SBP < : 90 HOLD for HR < : 60 Interventions: ED Discharge Assessment Last Done: 06/17/22 18:13 Discharge Date/Time: 06/17/22 18:13
--- NOTE | 2022-06-17 17:41 | ECG_ITS ---
Test Reason : A-FIB Blood Pressure : / mmHG Vent. Rate : 068 BPM Atrial Rate : 068 BPM P-R Int : 174 ms QRS Dur : 072 ms QT Int : 442 ms P-R-T Axes : 061 -09 025 degrees QTc Int : 469 ms Normal sinus rhythm Normal ECG When compared with ECG of 07-JUN-2022 12:19, No significant change was found Referred By: Derrell Hernandez Electronically Signed By:Isauro Triana
== END 2022-06-17 18:13 | disposition skilled nursing facility (03) ==
PROVIDERS: Emergency Provider Internal Medicine
DX: R06.02 Shortness of breath (principal); I48.91 Unspecified atrial fibrillation; F41.1 Generalized anxiety disorder; F43.0 Acute stress reaction; Z79.01 Long term (current) use of anticoagulants; Z79.899 Other long term (current) drug therapy
CPT/HCPCS: 93005; 99283

== ENCOUNTER 2022-07-05 15:37 | Emergency (ER) | payer MEDICARE, BC, OTHER, SELFPAY ==
--- NOTE | ~2022-07-05 | XR_ITS ---
EXAMINATION: XR HAND, RIGHT CLINICAL INFORMATION: Fifth digit swelling and redness for 2 weeks COMPARISON: None TECHNIQUE: PA, lateral, and oblique views of the right hand. FINDINGS: Mild soft tissue swelling about the distal aspect of the fifth digit. There are mild degenerative changes in the second, third, and fifth DIP joints. I do not appreciate any acute fracture or dislocation. No bony erosive or destructive lesions. 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 Mild degenerative changes but no acute fracture or dislocation.
[2022-07-05 16:04] VITALS: BP 154/90; PULSE 63; PULSE 70; RESP 18; TEMP 36.7; O2SAT 98; BMI 19.8
[2022-07-05 16:28] LABS: MANUAL DIFF FLAG NO
[2022-07-05 16:30] LABS: Basophils Percent Auto 0.3 % (0-2); Eosinophils Absolute Auto 0.2 X10*3/uL (0.0-0.4); Eosinophils Percent Auto 2.2 % (0-4); Hematocrit 36.7 % (37.0-47.0); Hemoglobin 12.1 g/dl (12.0-16.0); Imm Gran Abs Auto 0.03 X10*3/uL (0.00-0.03); Imm Gran Pct Auto 0.3 % (0.0-0.4); Lymphocytes Absolute Auto 2.6 X10*3/uL (1.2-4.9); Lymphocytes Percent Auto 29.4 % (20-40); Monocytes Absolute Auto 0.9 X10*3/uL (0.1-1.2); Monocytes Percent Auto 10.5 % (2-11); Neutrophils Absolute Auto 5.1 x10*3/uL (2.0-8.3); Neutrophils Percent Auto 57.3 % (45-73); Platelet Count 182 X10*3/uL (160-400); Red Blood Count 4.17 X10*6/uL (4.20-5.50); Red Cell Distribution Width 13.1 % (11.0-16.0); White Blood Count 8.9 X10*3/uL (4.8-10.8)
--- NOTE | 2022-07-05 16:41 | ED.EXTPRO ---
HPI - Extremity Problem General Chief complaint: Extremity Injury, Upper Stated complaint: +COVID, L PINKY FINGER PAIN Time Seen by Provider: 07/05/22 15:58 Source: patient Mode of arrival: EMS Limitations: other (History of dementia) History of Present Illness HPI Narrative: Patient comes to the emergency room complaining of a blister that the rapid on her right pinky finger. Patient states it has been there for about a week. Gradually becoming more erythematous, spreading from the finger tip towards the hand, very painful. Patient denies fever or chills. Patient denies trauma Related Data Home Medications Medication Instructions Recorded Confirmed alprazolam 0.25 mg tablet 1 tab PO BID PRN anxiety 06/05/22 06/05/22 cholecalciferol (vitamin D3) 25 25 mcg PO DAILY 06/05/22 06/05/22 mcg (1,000 unit) tablet (Vitamin D3) denosumab 60 mg/mL subcutaneous 60 mg subcut DAILY 06/05/22 06/05/22 syringe (Prolia) donepezil 10 mg tablet 1 tab PO BEDTIME 06/05/22 06/05/22 gabapentin 100 mg capsule 2 cap PO BID 06/05/22 06/05/22 paroxetine HCl 20 mg tablet 1 tab PO DAILY 06/05/22 06/05/22 vitamin A 10,000 unit capsule 10,000 unit PO DAILY 06/05/22 06/05/22 Previous Rx's Medication Instructions Recorded amoxicillin 500 mg capsule 500 mg PO Q8H 12 days #36 caps 06/09/22 apixaban 2.5 mg tablet (Eliquis) 2.5 mg PO BID #60 tabs 06/09/22 propranolol 80 mg capsule,24 80 mg PO DAILY 30 days #30 caps 06/09/22 hr,extended release cephalexin 500 mg capsule 500 mg PO BID #14 caps 07/05/22 doxycycline hyclate 100 mg tablet 100 mg PO BID #14 tabs 07/05/22 Allergies Allergy/AdvReac Type Severity Reaction Status Date / Time Sulfa (Sulfonamide Allergy Unknown Unknown Unverified 06/05/22 04:56 Antibiotics) Review of Systems Review of Systems: Constitutional : No Weight loss, No Fever, No Chills, No Night Sweats, No Fatigue, No Malaise ENT/Mouth : No Hearing loss, No Ear Pain, No Nasal Congestion, No Sinus Pain, No Hoarseness, No sore throat, No Rhinorrhea, No Swallowing Difficulty Eyes: No Eye Pain, No Swelling, No Redness, No Foreign Body, No Discharge, No Vision Changes Cardiovascular : No Chest Pain, No SOB, No Dyspnea on Exertion, No Orthopnea, No Edema, No Palpitations Respiratory : No Cough, No Sputum, No Wheezing, No Smoke Exposure, No Dyspnea Gastrointestinal : No Nausea, No Vomiting, No Diarrhea, No Constipation, No abdominal Pain, No Hematochezia, No Melena Genitourinary : no irregular bleeding, No Dysuria, No Urinary Frequency, No Hematuria, No Urinary Incontinence, No Urgency, No Flank Pain, No Urinary Flow Changes, No Hesitancy Musculoskeletal : No joint pain, No Myalgias, No Joint Swelling Skin : Blister and discoloration in the right pinky finger with pain and erythema Neuro : No Weakness, No Numbness, No Paresthesias, No Loss of Consciousness, No Dizziness, No Headache Psych : No Anxiety/Panic, No Depression, No SI/HI/AH/VH, No Social Issues, Heme/Lymph: No Bruising, No Bleeding,No Lymphadenopathy Endocrine : No Polyuria, No Polydipsia, No Temperature Intolerance [facility] Past Medical History Medical History (Updated 07/05/22 @ 19:45 by Pita Owens MD) Anxiety Dementia Raynaud's disease Social History Social History Household Members: Spouse Housing: House Do you presently have visiting nurse or other home services: No Alcohol intake: never Patient Tobacco Use Status: Never used Tobacco Smoked in Last 30 Days: No Use of substances other than those prescribed or required for medical reasons: No Advance Directives: No Advance Directives Information Provided: No Physical Exam Vital Signs: Vital Signs: Last Vital Signs Temp 98.5 F 07/05/22 19:13 Pulse 62 07/05/22 19:13 Resp 16 07/05/22 19:13 BP 133/49 L 07/05/22 19:13 Pulse Ox 95 07/05/22 19:13 O2 Del Method 07/05/22 19:13 BMI result Body Mass Index 19.8 Const: Other: Appearance: Alert. Oriented X3. No acute distress. Eyes: Pupils equal, round and reactive to light. ENT: Pharynx normal. Neck: Normal inspection. Neck supple. No lymph nodes noted. No crepitus CVS: Normal heart rate and rhythm. Pulses normal. Normal S1 and S2 Respiratory: No respiratory distress. Breath sounds normal. No Wheezing. No rales Abdomen: Soft and nontender. No rigidity. No distention. Skin: Skin warm and dry. Normal skin color. Normal skin turgor. Patient's 5th digit on the right hand has a bluish discoloration above the fingernail, the tip itself is purple, erythema extending upwards towards the hand through the finger, see picture below Extremities: No lower extremity edema. No Lacerations. No Rash Neuro: Oriented X 3. No motor deficit. No sensory deficit. Moving all extremities. No slurred speech. CN 2 through 12 grossly intact Psych: calm, cooperative, normal affect Course Course Course Narrative: -patient's labs and imaging pending. -patient's white blood cell count and lactic acid within normal limits. Sepsis not suspected -I discussed the patient, sent pictures to both Dr. Haider and Dr. Gonzáles, both agree that the patient should be treated with antibiotics, patient can follow-up with Dr. Gonzáles early next week. Hospitalization not indicated. - Unfortunately, more aggressive medical management such as calcium channel blockers, topical nitroglycerin or even IV prostaglandins may cause more problems and solutions to the patient's health. Patient has been made aware that it is possible that the tip of her finger is likely having necrosis. I discussed with the patient the home she should be treating her hand with the antibiotics and also trying to keep her hand warm. It is possible that patient may lose her fingertips. I discussed the above-mentioned with the patient and her son. Both agree with the treatment with antibiotics and to follow up with Dr. Gonzáles early next week. -patient was given the 1st dose of antibiotics, Keflex and doxycycline in the emergency room. Medical Decision Making Differential Diagnosis Differential Diagnoses: The differential diagnosis associated with the presentation includes (Cellulitis, Raynaud's , gangrene) Consult Healthcare Provider Management of the patient was discussed with: [employer] Consult[employer] (Dr. Gonzáles from Hand surgery and Dr. Haider from vascular surgery) Lab Data MDM Lab Attestation statement: I reviewed the patient's lab results. 07/05/22 16:24 07/05/22 16:24 Labs: Lab Results 07/05/22 07/05/22 07/05/22 Range/Units 16:24 16:24 17:02 WBC 8.9 (4.8-10.8) X10*3/uL RBC 4.17 L (4.20-5.50) X10*6/uL Hgb 12.1 (12.0-16.0) g/dl Hct 36.7 L (37.0-47.0) % MCV 88.0 (80.0-98.0) fL MCH 29.0 (27.0-33.0) pg MCHC 33.0 (31.0-35.0) g/dl RDW 13.1 (11.0-16.0) % Plt Count 182 D (160-400) X10*3/uL MPV 10.0 (9.4-12.3) fL Immature Gran % (Auto) 0.3 (0.0-0.4) % Neut % (Auto) 57.3 (45-73) % Lymph % (Auto) 29.4 (20-40) % [facility] % (Auto) 10.5 (2-11) % Eos % (Auto) 2.2 (0-4) % Baso % (Auto) 0.3 (0-2) % Lymph # (Auto) 2.6 (1.2-4.9) X10*3/uL [facility] # (Auto) 0.9 (0.1-1.2) X10*3/uL Eos # (Auto) 0.2 (0.0-0.4) X10*3/uL Baso # (Auto) 0.0 (0.0-0.2) X10*3/uL Abs Immat Gran (auto) 0.03 (0.00-0.03) X10*3/uL Absolute Neuts (auto) 5.1 (2.0-8.3) x10*3/uL Absolute Nucleated RBC 0.000 (0.0-0.012) X10*3/uL Nucleated RBC % (auto) 0.0 (0.0-0.2) /100WBC Sodium 136 (135-145) mmol/L Potassium 4.0 (3.3-5.1) mmol/L Chloride 104 (96-108) mmol/L Carbon Dioxide 25 (22-29) mmol/L Anion Gap 11 L (12-20) BUN 19 H (9-16) mg/dL Creatinine 0.97 (0.5-1.4) mg/dL Estim Creat Clear Calc 43.0 Estimated GFR 55 Random Glucose 100 (60-115) mg/dL Lactic Acid 0.7 (0.5-2.0) mmol/L Calcium 9.2 (8.4-10.2) mg/dL Total Bilirubin 0.5 (0.0-1.0) mg/dL AST 26 (5-31) U/L ALT 21 (0-31) U/L Alkaline Phosphatase 105 (39-117) U/L Total Protein 6.4 L (6.5-8.0) g/dL Albumin 3.6 (3.5-5.0) g/dL COVID-19 ([facility]) (Negative) COVID-19 Clin Com 07/05/22 Range/Units 17:02 WBC (4.8-10.8) X10*3/uL RBC (4.20-5.50) X10*6/uL Hgb (12.0-16.0) g/dl Hct (37.0-47.0) % MCV (80.0-98.0) fL MCH (27.0-33.0) pg MCHC (31.0-35.0) g/dl RDW (11.0-16.0) % Plt Count (160-400) X10*3/uL MPV (9.4-12.3) fL Immature Gran % (Auto) (0.0-0.4) % Neut % (Auto) (45-73) % Lymph % (Auto) (20-40) % [facility] % (Auto) (2-11) % Eos % (Auto) (0-4) % Baso % (Auto) (0-2) % Lymph # (Auto) (1.2-4.9) X10*3/uL [facility] # (Auto) (0.1-1.2) X10*3/uL Eos # (Auto) (0.0-0.4) X10*3/uL Baso # (Auto) (0.0-0.2) X10*3/uL Abs Immat Gran (auto) (0.00-0.03) X10*3/uL Absolute Neuts (auto) (2.0-8.3) x10*3/uL Absolute Nucleated RBC (0.0-0.012) X10*3/uL Nucleated RBC % (auto) (0.0-0.2) /100WBC Sodium (135-145) mmol/L Potassium (3.3-5.1) mmol/L Chloride (96-108) mmol/L Carbon Dioxide (22-29) mmol/L Anion Gap (12-20) BUN (9-16) mg/dL Creatinine (0.5-1.4) mg/dL Estim Creat Clear Calc Estimated GFR Random Glucose (60-115) mg/dL Lactic Acid (0.5-2.0) mmol/L Calcium (8.4-10.2) mg/dL Total Bilirubin (0.0-1.0) mg/dL AST (5-31) U/L ALT (0-31) U/L Alkaline Phosphatase (39-117) U/L Total Protein (6.5-8.0) g/dL Albumin (3.5-5.0) g/dL COVID-19 ([facility]) Positive A (Negative) COVID-19 Clin Com See Note Independent Interpretation I performed an independent interpretation of an: Plain X-Ray (My interpretation of hand x-ray, no foreign body, no dislocation or fractures) Radiology Impression Discussion of test interpretation with radiology: I have reviewed the radiologist's reading. Radiologist Impression: FINDINGS: Mild soft tissue swelling about the distal aspect of the fifth digit. There are mild degenerative changes in the second, third, and fifth DIP joints. I do not appreciate any acute fracture or dislocation. No bony erosive or destructive lesions. 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 XR/XR hand RT 2V IMPRESSION: Soft tissue swelling about the fifth digit. Mild degenerative changes but no acute fracture or dislocation. ? Discharge Plan Discharge Clinical Impression: Raynaud's disease with gangrene, Cellulitis Patient Disposition: Home, Self-Care Instructions: Cellulitis (ED), Raynaud Disease (ED) Additional Instructions: Please follow-up with your primary care physician tomorrow. If you have any worsening or new symptoms, please return to the emergency room or call 911 Prescriptions: New doxycycline hyclate 100 mg tablet 100 mg PO BID Qty: 14 0RF cephalexin 500 mg capsule 500 mg PO BID Qty: 14 0RF No Action donepezil 10 mg tablet 1 tab PO BEDTIME alprazolam 0.25 mg tablet 1 tab PO BID PRN (Reason: anxiety) vitamin A 10,000 unit Capsule 10,000 unit PO DAILY paroxetine HCl 20 mg tablet 1 tab PO DAILY gabapentin 100 mg capsule 2 cap PO BID cholecalciferol (vitamin D3) [Vitamin D3] 25 mcg (1,000 unit) Tablet 25 mcg PO DAILY Prolia 60 mg/mL syringe 60 mg subcut DAILY amoxicillin 500 mg Capsule 500 mg PO Q8H 12 Days Qty: 36 0RF Eliquis 2.5 mg Tablet 2.5 mg PO BID Qty: 60 2RF propranolol 80 mg Capsule,Extended Release 24hr 80 mg PO DAILY 30 Days Qty: 30 0RF Protocol: Hold for SBP/HR < HOLD for SBP < : 90 HOLD for HR < : 60 Referrals: Riya Gonzáles MD [Physician] - 07/09/22
[2022-07-05 16:49] LABS: Alanine Aminotransferase 21 U/L (0-31); Albumin Level 3.6 g/dL (3.5-5.0); Alkaline Phosphatase 105 U/L (39-117); Anion Gap 11 (12-20); Aspartate Amino Transferase 26 U/L (5-31); Bilirubin Total 0.5 mg/dL (0.0-1.0); Blood Urea Nitrogen 19 mg/dL (9-16); Calcium 9.2 mg/dL (8.4-10.2); Carbon Dioxide 25 mmol/L (22-29); Chloride 104 mmol/L (96-108); Estimated Glomerular Filt Rate 55; Glucose Random 100 mg/dL (60-115); Sodium 136 mmol/L (135-145); Total Protein 6.4 g/dL (6.5-8.0)
[2022-07-05 17:23] LABS: Lactic Acid 0.7 mmol/L (0.5-2.0)
[2022-07-05 17:26] LABS: COVID-19 Test Positive (Negative); IDNOW Serial# BCCEAD1C
[2022-07-05 19:13] VITALS: BP 133/49; PULSE 62; RESP 16; TEMP 36.9; O2SAT 95
[2022-07-05 20:08] VITALS: BP 96/39; PULSE 78; RESP 18; TEMP 36.9; O2SAT 97
[2022-07-05] MEDS: cephALEXin 250 MG CAPSULE PO (20:13)
[2022-07-05] MEDS: Doxycycline Monohydrate 100 MG CAPSULE PO (20:13)
--- NOTE | 2022-07-05 20:13 | MHC.EDTECH ---
Trish called at 2002 for a bls transfer back to [facility],[place] within 20mins,Rn aware.
== END 2022-07-05 20:25 | disposition home or self-care (01) ==
PROVIDERS: Emergency Provider Emergency Medicine
DX: I73.01 Raynaud's syndrome with gangrene (principal); U07.1 COVID-19; L03.011 Cellulitis of right finger; Z79.899 Other long term (current) drug therapy
CPT/HCPCS: 36415; 73120; 80053; 83605; 85025; 87040; 87147; 87205; 87635; 99283; 99284

== ENCOUNTER → 2022-07-11 12:28 | Outpatient (BNVA) | payer MEDICARE, BC, OTHER, SELFPAY | PROVIDERS: PCP Nurse Practitioner Family; Visit Provider Orthopaedic Surgery | DX: S62.636A Displaced fracture of distal phalanx of right little finger, initial encounter for closed fracture (principal) | CPT/HCPCS: 99202 ==

== ENCOUNTER → 2022-07-20 14:04 | Outpatient (BNVA) | payer MEDICARE, BC, OTHER, SELFPAY | PROVIDERS: PCP Nurse Practitioner Family; Visit Provider Physician Assistant | DX: S62.636A Displaced fracture of distal phalanx of right little finger, initial encounter for closed fracture (principal); W23.0XXA Caught, crushed, jammed, or pinched between moving objects, initial encounter; Y93.9 Activity, unspecified; Y92.9 Unspecified place or not applicable; Y99.8 Other external cause status | CPT/HCPCS: 99212 ==

== ENCOUNTER → 2022-07-24 11:05 | Outpatient (BNVA) | payer MEDICARE, BC, OTHER, SELFPAY | PROVIDERS: PCP Nurse Practitioner Family; Visit Provider Physician Assistant | DX: S62.636D Displaced fracture of distal phalanx of right little finger, subsequent encounter for fracture with routine healing (principal) | CPT/HCPCS: 99212 ==

== ENCOUNTER 2022-08-03 10:48 | Emergency (ER) | payer MEDICARE, BC, OTHER, SELFPAY ==
--- NOTE | ~2022-08-03 | XR_ITS ---
EXAMINATION: XR CHEST CLINICAL INFORMATION: Shortness of breath and hypoxia COMPARISON: None TECHNIQUE: Frontal view of the chest was obtained. FINDINGS: Normal symmetric lung volumes. No parenchymal consolidation. No pleural effusion. No pneumothorax. Cardiomediastinal silhouette and pulmonary vascularity are within normal limits. Aorta is atherosclerotic. No acute osseous abnormalities. Healed posterolateral right fifth rib fracture. XR/XR chest 1V IMPRESSION: No focal consolidation.
[2022-08-03 10:56] VITALS: BP 106/78; BP 173/78; PULSE 55; PULSE 84; RESP 18; TEMP 36.4; O2SAT 96; O2SAT 97; BMI 18.8
--- NOTE | 2022-08-03 12:18 | ECG_ITS ---
Test Reason : SOB Blood Pressure : / mmHG Vent. Rate : 054 BPM Atrial Rate : 054 BPM P-R Int : 148 ms QRS Dur : 074 ms QT Int : 438 ms P-R-T Axes : 049 -07 024 degrees QTc Int : 415 ms Sinus bradycardia Otherwise normal ECG When compared with ECG of 17-JUN-2022 17:52, QT has shortened Referred By: Sofie Robbins Electronically Signed By:DEANNE SEWELL
[2022-08-03 12:38] LABS: MANUAL DIFF FLAG NO
[2022-08-03 12:39] VITALS: BP 143/67; PULSE 65; RESP 18; O2SAT 98
[2022-08-03 12:45] LABS: Basophils Percent Auto 0.6 % (0-2); Eosinophils Absolute Auto 0.1 X10*3/uL (0.0-0.4); Eosinophils Percent Auto 1.4 % (0-4); Hematocrit 42.3 % (37.0-47.0); Hemoglobin 13.9 g/dl (12.0-16.0); Imm Gran Abs Auto 0.01 X10*3/uL (0.00-0.03); Imm Gran Pct Auto 0.1 % (0.0-0.4); Lymphocytes Absolute Auto 1.9 X10*3/uL (1.2-4.9); Lymphocytes Percent Auto 27.2 % (20-40); Mean Corpuscular HGB Conc 32.9 g/dl (31.0-35.0); Mean Corpuscular Volume 88.3 fL (80.0-98.0); Mean Platelet Volume 10.6 fL (9.4-12.3); Monocytes Absolute Auto 0.6 X10*3/uL (0.1-1.2); Monocytes Percent Auto 7.9 % (2-11); Neutrophils Absolute Auto 4.4 x10*3/uL (2.0-8.3); Neutrophils Percent Auto 62.8 % (45-73); Platelet Count 220 X10*3/uL (160-400); Red Blood Count 4.79 X10*6/uL (4.20-5.50); Red Cell Distribution Width 13.1 % (11.0-16.0)
--- NOTE | 2022-08-03 12:49 | ED_ITS ---
HPI - General Adult General Chief complaint: Weakness Stated complaint: SOB x3-4days (86 on room air, 22RR) per EMS Time Seen by Provider: 08/03/22 12:17 Source: patient, family and EMS Mode of arrival: EMS Limitations: no limitations History of Present Illness HPI narrative: 81 yo female with history of afib on eliquis, dementia,anxiety, who presents to the ER for evaluation of an episode of SOB, hyperventilation and LE weakness that occurred earlier today. Patient was suddenly breathing rapidly with chattering teeth when she was in bed. reports she stood up and lowered herself to the ground. He called 911 because her breathing would not slow. EMS found the patient rapidly breathing with SPO2 88%. She was brought to the ER for further evaluation. SpO2 on arrival to the ER 97% on RA. reports patient usually has two of these episodes per day. They usually do not last this long. He states she experiences episodes of rapid breathing and teeth chattering frequently since her recent stay at an acute rehab about a month ago. She usually does not have associated weakness with them. MD complaint: SOB Onset (ago): hour(s) Location: left, right and lower extremity Radiation: non-radiation Severity: moderate Pain Consistency: now resolved Relieving factors: none Exacerbating factors: none Associated symptoms: confusion, shortness of breath and weakness Treatments prior to arrival: none Related Data Home Medications Medication Instructions Recorded Confirmed alprazolam 0.25 mg tablet 1 tab PO BID PRN anxiety 06/05/22 06/05/22 cholecalciferol (vitamin D3) 25 25 mcg PO DAILY 06/05/22 06/05/22 mcg (1,000 unit) tablet (Vitamin D3) denosumab 60 mg/mL subcutaneous 60 mg subcut DAILY 06/05/22 06/05/22 syringe (Prolia) donepezil 10 mg tablet 1 tab PO BEDTIME 06/05/22 06/05/22 gabapentin 100 mg capsule 2 cap PO BID 06/05/22 06/05/22 paroxetine HCl 20 mg tablet 1 tab PO DAILY 06/05/22 06/05/22 vitamin A 10,000 unit capsule 10,000 unit PO DAILY 06/05/22 06/05/22 Previous Rx's Medication Instructions Recorded apixaban 2.5 mg tablet (Eliquis) 2.5 mg PO BID #60 tabs 06/09/22 propranolol 80 mg capsule,24 80 mg PO DAILY 30 days #30 caps 06/09/22 hr,extended release cephalexin 500 mg capsule 500 mg PO BID #14 caps 07/05/22 doxycycline hyclate 100 mg tablet 100 mg PO BID #14 tabs 07/05/22 doxycycline hyclate 100 mg tablet 100 mg PO BID #10 tab-caps 07/11/22 quetiapine 25 mg tablet (Seroquel) 25 mg PO BID PRN anxiety #10 tabs 08/03/22 Allergies Allergy/AdvReac Type Severity Reaction Status Date / Time Sulfa (Sulfonamide Allergy Unknown Unknown Verified 07/24/22 11:14 Antibiotics) Review of Systems Review of Systems: Yes all other systems are reviewed and are negative FOR[facility]LY [facility], [facility] Past Medical History Medical History Anxiety Dementia Raynaud's disease Social History Social History Household Members: Spouse Housing: House Do you presently have visiting nurse or other home services: No Alcohol intake: never Patient Tobacco Use Status: Never used Tobacco Advance Directives: Yes Advance Directives on File: Yes Advance Directives Date on File: 07/06/22 Current occupational status: retired and disabled Current occupation: rt hand Physical Exam ED Vital Signs: Vital Signs - 24 hr 08/03/22 10:56 08/03/22 12:39 08/03/22 14:40 Temperature 97.6 F Pulse Rate 55 65 62 Respiratory Rate 18 18 16 Blood Pressure 173/78 H 143/67 H 102/53 L Pulse Oximetry 97 98 99 Oxygen Delivery Method Room Air Room Air Room Air BMI result Body Mass Index 18.8 Appearance: Alert. Oriented X3. No acute distress. Eyes: Pupils equal, round and reactive to light. ENT: Pharynx normal. Neck: Normal inspection. Neck supple. CVS: bradycardic, sinus rhythm. HR 50s Pulses normal. Respiratory: No respiratory distress. Breath sounds normal. Abdomen: Soft and nontender. +BS x4 Skin: Skin warm and dry. Normal skin color. Normal skin turgor. No rashes. Extremities: No lower extremity edema. Neuro: Oriented X 3. No motor deficit. No sensory deficit. No tremor. Forgetful and poor historian. Course Course Course Narrative: 81-year-old female with history of dementia, a Eliquis, anxiety with recent ER visits for the same presents to the ER for evaluation of hyperventilation episode associated with lower extremity weakness causing her to lower herself to the ground. She did not fall. She did not hit her head. With this by her . Patient arrives to the ER hemodynamically stable and on room air. She is breathing comfortably with clear lungs on examination. Will get EKG, chest x- ray, lab workup and monitor on hospital monitor. Reevaluation(s) Reevaluation #1: patient feeling better, wants to go home. SpO2 99% on RA. workup is unremarkable. will see how her gait/stability is Reevaluation #2: Ambulated independently with a steady gait. Will plan to discharge on low-dose Seroquel as needed for panic attacks. Encouraged follow-up with PCP. Stable for discharge home Medical Decision Making Medical Decision Making [facility] Narrative: 81-year-old female with history of dementia, AFib on Eliquis, bursitis, anxiety who presents to the ER for evaluation of hyperventilation, shortness of breath, teeth chattering and lower extremity weakness. Symptoms have significantly improved on arrival to the ER. Question of an acute anxiety attack. Doubt any acute underlying pulmonary or cardiac etiology. EKG showing sinus bradycardia. Troponin is negative. Lab workup was otherwise unremarkable. UA negative. is asking for medications to possibly use during these episodes if they do not resolve quickly. It looks like she was previously prescribed alprazolam. Given age will start low-dose Seroquel p.r.n. and have her follow-up with her PCP for further recommendations and evaluation. Differential Diagnosis Differential Diagnoses: The differential diagnosis associated with the presentation includes Anxiety attack, or pneumonia, asthma, COPD, CHF, no evidence of acute stroke, no evidence of acute metabolic abnormality or anemia. Lab Data [facility] Lab Attestation statement: I reviewed the patient's lab results. Unremarkable. 08/03/22 12:26 08/03/22 12: Labs: Lab Results 08/03/22 08/03/22 08/03/22 Range/Units 12:26 12: 12: WBC 7.0 (4.8-10.8) X10*3/uL RBC 4.79 (4.20-5.50) X10*6/uL Hgb 13.9 (12.0-16.0) g/dl Hct 42.3 (37.0-47.0) % MCV 88.3 (80.0-98.0) fL MCH 29.0 (27.0-33.0) pg MCHC 32.9 (31.0-35.0) g/dl RDW 13.1 (11.0-16.0) % Plt Count 220 (160-400) X10*3/uL MPV 10.6 (9.4-12.3) fL Immature Gran % (Auto) 0.1 (0.0-0.4) % Neut % (Auto) 62.8 (45-73) % Lymph % (Auto) 27.2 (20-40) % Campbell % (Auto) 7.9 (2-11) % Eos % (Auto) 1.4 (0-4) % Baso % (Auto) 0.6 (0-2) % Lymph # (Auto) 1.9 (1.2-4.9) X10*3/uL Campbell # (Auto) 0.6 (0.1-1.2) X10*3/uL Eos # (Auto) 0.1 (0.0-0.4) X10*3/uL Baso # (Auto) 0.0 (0.0-0.2) X10*3/uL Abs Immat Gran (auto) 0.01 (0.00-0.03) X10*3/uL Absolute Neuts (auto) 4.4 (2.0-8.3) x10*3/uL Absolute Nucleated RBC 0.000 (0.0-0.012) X10*3/uL Nucleated RBC % (auto) 0.0 (0.0-0.2) /100WBC Sodium 142 (135-145) mmol/L Potassium 4.0 (3.3-5.1) mmol/L Chloride 105 (96-108) mmol/L Carbon Dioxide 28 (22-29) mmol/L Anion Gap 13 (12-20) BUN 13 (9-16) mg/dL Creatinine 0.86 (0.5-1.4) mg/dL Estim Creat Clear Calc 45.1 Estimated GFR > 60 Random Glucose 93 (60-115) mg/dL Calcium 9.6 (8.4-10.2) mg/dL Magnesium 1.9 (1.6-2.6) mg/dL Total Bilirubin 1.2 H (0.0-1.0) mg/dL Direct Bilirubin 0.2 (0.0-0.5) mg/dL AST 44 H (5-31) U/L ALT 44 H (0-31) U/L Alkaline Phosphatase 80 (39-117) U/L Troponin I High Sens (<3.5-17.0) ng/L B-Natriuretic Peptide (<100) pg/mL Total Protein 7.1 (6.5-8.0) g/dL Albumin 4.2 (3.5-5.0) g/dL Urine Color Urine Appearance Urine pH (5.0-9.0) Ur Specific [place] (1.005-1.025) Urine Protein (Neg-Trace) mg/dL Urine Glucose (UA) (Negative) mg/dL Urine Ketones (Negative) mg/dL Urine Blood (Negative) Urine Nitrite (Negative) Ur Leukocyte Esterase (Negative) Urine RBC (0-2) /HPF Urine WBC (0-5) /HPF Ur Squamous Epith Cells (0-2) /HPF Urine Bacteria (None Seen) Hyaline Casts (0-2) /LPF COVID-19 ([facility]) Negative (Negative) COVID-19 Clin Com See Note 08/03/22 08/03/22 08/03/22 Range/Units 12:26 12:26 12:41 WBC (4.8-10.8) X10*3/uL RBC (4.20-5.50) X10*6/uL Hgb (12.0-16.0) g/dl Hct (37.0-47.0) % MCV (80.0-98.0) fL MCH (27.0-33.0) pg MCHC (31.0-35.0) g/dl RDW (11.0-16.0) % Plt Count (160-400) X10*3/uL MPV (9.4-12.3) fL Immature Gran % (Auto) (0.0-0.4) % Neut % (Auto) (45-73) % Lymph % (Auto) (20-40) % Campbell % (Auto) (2-11) % Eos % (Auto) (0-4) % Baso % (Auto) (0-2) % Lymph # (Auto) (1.2-4.9) X10*3/uL Campbell # (Auto) (0.1-1.2) X10*3/uL Eos # (Auto) (0.0-0.4) X10*3/uL Baso # (Auto) (0.0-0.2) X10*3/uL Abs Immat Gran (auto) (0.00-0.03) X10*3/uL Absolute Neuts (auto) (2.0-8.3) x10*3/uL Absolute Nucleated RBC (0.0-0.012) X10*3/uL Nucleated RBC % (auto) (0.0-0.2) /100WBC Sodium (135-145) mmol/L Potassium (3.3-5.1) mmol/L Chloride (96-108) mmol/L Carbon Dioxide (22-29) mmol/L Anion Gap (12-20) BUN (9-16) mg/dL Creatinine (0.5-1.4) mg/dL Estim Creat Clear Calc Estimated GFR Random Glucose (60-115) mg/dL Calcium (8.4-10.2) mg/dL Magnesium (1.6-2.6) mg/dL Total Bilirubin (0.0-1.0) mg/dL Direct Bilirubin (0.0-0.5) mg/dL AST (5-31) U/L ALT (0-31) U/L Alkaline Phosphatase (39-117) U/L Troponin I High Sens 5.3 (<3.5-17.0) ng/L B-Natriuretic Peptide 33 (<100) pg/mL Total Protein (6.5-8.0) g/dL Albumin (3.5-5.0) g/dL Urine Color Yellow Urine Appearance Clear Urine pH 6.0 (5.0-9.0) Ur Specific [place] 1.010 (1.005-1.025) Urine Protein Negative (Neg-Trace) mg/dL Urine Glucose (UA) Negative (Negative) mg/dL Urine Ketones Negative (Negative) mg/dL Urine Blood Negative (Negative) Urine Nitrite Negative (Negative) Ur Leukocyte Esterase Trace H (Negative) Urine RBC 0-2 (0-2) /HPF Urine WBC 0-5 (0-5) /HPF Ur Squamous Epith Cells 0-2 (0-2) /HPF Urine Bacteria None Seen (None Seen) Hyaline Casts 0-2 (0-2) /LPF COVID-19 ([facility]) (Negative) COVID-19 Clin Com Independent Interpretation I performed an independent interpretation of an: EKG and Plain X-Ray Interpretation: Sinus bradycardia, ventricular rate 54 beats per minute, normal OR interval, normal QTC, no ST segment elevations or depressions. Chest x-ray reviewed, no focal infiltrate or effusion. Agree with the radiologist's reading. Radiology Impression Discussion of test interpretation with radiology: I have reviewed the radiologist's reading. Radiologist Impression: ?XR/XR chest 1V IMPRESSION: No focal consolidation. ? Independent Historian Clinical information obtained from an independent historian. History obtained from or confirmed by: Spouse and EMS External Record Review External record reviewed: Office record, Outpatient record, Prior outpatient labs and Prior outpatient radiology Prescription Management I considered prescription management with: Other (Dementia) Chronic Conditions Patient?s care impacted by: Other Critical Care Time Critical Care Time Critical Care Time: No Discharge Plan Discharge Clinical Impression: Panic attack Patient Disposition: Home, Self-Care Instructions: Panic Attack (ED) Additional Instructions: Your lab workup today was normal. Your symptoms are most likely due to anxiety and panic attacks. Recommend starting the newly prescribed medication as needed for these episodes. Recommend following up with your primary care doctor for further evaluation and treatment. If you develop new or worsening symptoms call 911 or come back to the ER for further evaluation. Prescriptions: New quetiapine [Seroquel] 25 mg tablet 25 mg PO BID PRN (Reason: anxiety) Qty: 10 0RF No Action donepezil 10 mg tablet 1 tab PO BEDTIME alprazolam 0.25 mg tablet 1 tab PO BID PRN (Reason: anxiety) vitamin A 10,000 unit Capsule 10,000 unit PO DAILY paroxetine HCl 20 mg tablet 1 tab PO DAILY gabapentin 100 mg capsule 2 cap PO BID cholecalciferol (vitamin D3) [Vitamin D3] 25 mcg (1,000 unit) Tablet 25 mcg PO DAILY Prolia 60 mg/mL syringe 60 mg subcut DAILY Eliquis 2.5 mg Tablet 2.5 mg PO BID Qty: 60 2RF propranolol 80 mg Capsule,Extended Release 24hr 80 mg PO DAILY 30 Days Qty: 30 0RF Protocol: Hold for SBP/HR < HOLD for SBP < : 90 HOLD for HR < : 60 doxycycline hyclate 100 mg tablet 100 mg PO BID Qty: 14 0RF cephalexin 500 mg capsule 500 mg PO BID Qty: 14 0RF doxycycline hyclate 100 mg tablet 100 mg PO BID Qty: 10 0RF Rx Instructions: extend current 7 day course of abx by 5 days
[2022-08-03 12:56] LABS: Appearance Urine Clear; Color Urine Yellow; Glucose Urine UA Negative (Negative); Leukocyte Esterase Urine Trace (Negative); Nitrite Urine Negative (Negative); UMIC TRIGGER UACC YES; Urine Blood Negative (Negative); Urine Ketones Negative (Negative); Urine Protein Negative (Neg-Trace)
[2022-08-03 12:59] LABS: IDNOW Serial# BCCEAD1C
[2022-08-03 13:00] LABS: COVID-19 Test Negative (Negative)
[2022-08-03 13:01] LABS: Bacteria Urine None Seen (None Seen); Hyaline Casts Urine 0-2 /LPF (0-2); RBC Urine 0-2 /HPF (0-2); Squamous Epithelial Cell Urine 0-2 /HPF (0-2); WBC Urine 0-5 /HPF (0-5)
[2022-08-03 13:17] LABS: B Type Natriuretic Peptide 33 pg/mL (<100)
[2022-08-03 13:29] LABS: Alanine Aminotransferase 44 U/L (0-31); Albumin Level 4.2 g/dL (3.5-5.0); Alkaline Phosphatase 80 U/L (39-117); Anion Gap 13 (12-20); Aspartate Amino Transferase 44 U/L (5-31); Bilirubin Direct 0.2 mg/dL (0.0-0.5); Bilirubin Total 1.2 mg/dL (0.0-1.0); Blood Urea Nitrogen 13 mg/dL (9-16); Calcium 9.6 mg/dL (8.4-10.2); Carbon Dioxide 28 mmol/L (22-29); Chloride 105 mmol/L (96-108); Creatinine Clr Calc Pharmacy 45.1; Estimated Glomerular Filt Rate > 60; Glucose Random 93 mg/dL (60-115); Magnesium 1.9 mg/dL (1.6-2.6); Sodium 142 mmol/L (135-145); Total Protein 7.1 g/dL (6.5-8.0)
[2022-08-03 13:33] LABS: Troponin-I High Sensitivity 5.3 ng/L (<3.5-17.0)
[2022-08-03 14:40] VITALS: BP 102/53; PULSE 62; RESP 16; O2SAT 99
== END 2022-08-03 15:59 | disposition home or self-care (01) ==
PROVIDERS: Physician Assistant; Emergency Provider Student in an Organized Health Care Education/Training Program
DX: F41.0 Panic disorder [episodic paroxysmal anxiety] (principal); R06.02 Shortness of breath; I48.91 Unspecified atrial fibrillation; Z20.822 Contact with and (suspected) exposure to COVID-19; Z20.828 Contact with and (suspected) exposure to other viral communicable diseases; Z79.01 Long term (current) use of anticoagulants; Z79.899 Other long term (current) drug therapy
CPT/HCPCS: 36415; 71045; 80048; 80076; 81001; 83735; 83880; 84484; 85025; 87635; 93005; 99283; 99284